=== PATIENT | male | born 1965 | race Caucasian/White ===

== ENCOUNTER 2020-09-27 09:15 | Emergency (ER) | payer OTHER, SELFPAY ==
--- NOTE | ~2020-09-27 | XR_ITS ---
EXAMINATION: XR chest 1V portable EXAM DATE: 09/27/2020 10:59 INDICATION: High blood pressure, headache. TECHNIQUE: Portable AP frontal chest x-ray was obtained. Comparison is made to prior examination from 08/29/2019. Correlation was made with 08/29/2019. FINDINGS: There is no focal acute air space disease. Mild hyperinflation. There are no pleural effus ions. The cardiomediastinal silhouette is within normal limits. There is no pneumothorax suspected. The bones and soft tissues are unremarkable. IMPRESSION: No acute cardiopulmonary findings. Reviewed, dictated and finalized at location A. LFA DEHYDRATOR OPERATOR
[2020-09-27 09:52] VITALS: BP 215/104; PULSE 106; RESP 106; TEMP 36.8; O2SAT 98
--- NOTE | 2020-09-27 10:05 | ECG_ITS ---
Measurements Intervals [place] Rate: 91 P: 68 SC: 188 QRS: 63 QRSD: 81 T: 60 QT: 351 QTc: 432 Interpretive Statements SINUS RHYTHM VOLTAGE CRITERIA FOR LVH BASELINE ARTIFACT- V1 BORDERLINE ECG Electronically Signed On 09-27-2020 14:45:04 ELECTRIC ORGAN INSPECTOR AND REPAIRER by Kal Roberts D.O.
[2020-09-27 10:14] LABS: Basophils Percent Auto 0.6 % (0.2-1.2); Eosinophils Percent Auto 0.3 % (0-4.4); Hematocrit 40.6 % (42.0-52.0); Hemoglobin 14.1 g/dL (14.0-18.0); Immature Granulocyte Absolute 0.03 K/mm3 (0.00-0.031); Immature Granulocyte Percent A 0.5 % (0-0.5); Lymphocytes Absolute Auto 1.85 K/mm3 (0.9-3.2); Lymphocytes Percent Auto 28.3 % (18.3-44.2); Mean Corpuscular HGB Conc 34.7 g/dl (32-36); Mean Corpuscular Hemoglobin 35.8 pg (26-34); Mean Platelet Volume 8.6 fl (7.4-10.4); Monocytes Absolute Auto 0.5 K/mm3 (0.1-0.6); Neutrophils Absolute Auto 4.1 K/mm3 (1.3-6.7); Neutrophils Percent Auto 63.3 % (45.5-73.1); Platelet Count Result 156 k/mm3 (150-375); Red Blood Count 3.94 M/mm3 (4.6-6.20); Red Cell Distribution Width 14.3 % (11.5-14.5); White Blood Count 6.5 K/mm3 (4.5-10.0)
[2020-09-27 10:42] LABS: Anion Gap 8 mmol/L (8-16); Blood Urea Nitrogen 13 mg/dL (9-20); Calcium 9.1 mg/dL (8.4-10.2); Carbon Dioxide 34 mmol/L (22-30); Chloride 101 mmol/L (98-107); Estimated CRCL calculation 101 ml/min; Estimated Glomerular Filt Rate > 60; Glucose 107 mg/dL (75-110); Potassium 3.3 mmol/L (3.4-5.0); Sodium 143 mmol/L (137-145)
--- NOTE | 2020-09-27 10:42 | ED.GENADULT ---
HPI - General Adult General Chief complaint: Recheck/Abnormal Lab/Rx Stated complaint: high bp. sent by pcp Time Seen by Provider: 09/27/20 09:40 Source: patient Mode of arrival: ambulatory Limitations: no limitations History of Present Illness HPI narrative: Patient is a 54-year-old male who presents with high blood pressure from primary care doctor's office where he went for routine follow-up was found to have elevated blood pressure is currently asymptomatic does note that he has been under increasing stress has been out of his anxiety medicine for a week patient denies any illness complaints otherwise and is resting in the room in no distress upon arrival patient with history of tobacco abuse denies history of hypertension Related Data Allergies Allergy/AdvReac Type Severity Reaction Status Date / Time No Known Drug Allergies Allergy Unknown Unknown Verified 03/30/20 09:31 Review of Systems Review of Systems: All systems reviewed & are unremarkable except as noted in HPI and below PMFSH Past Medical History Medical History (Updated 09/27/20 @ 12:56 by Mateo Solano PA-C) Anxiety Social History Social History (Updated 09/27/20 @ 10:43 by Mateo Solano PA-C) Smoking status: Current every day smoker Gender identity (if verbalized by the patient): Female Sexual Orientation (if Verbalized by the Patient): Straight or Heterosexual Exam Narrative: Exam Narrative: GENERAL: Well-appearing, well-nourished, and in no acute distress. HEAD: Normocephalic, atraumatic. EYES: PERRLA and EOMI. ENT: Nares clear, no rhinorrhea or epistaxis. Mucous membranes moist. CHEST: Clear to auscultation. No respiratory distress. No wheezes rales or rhonchi HEART: Regular rate and rhythm. No murmur heard. Normal peripheral pulses. EXTREMITIES: Normal range of motion. No edema. SKIN: Warm, dry, no rash. NEURO: No focal deficits. Alert and oriented x3. Cranial nerves II through XII grossly intact PSYCH: Normal mood and affect. Course Course Emergency Course: Patient's blood pressure 164/99. Patient given blood pressure medications with improvement no high risk changes in the blood work felt appropriate for outpatient reevaluation will be started on blood pressure medication and follow in clinic Reevaluation(s) Reevaluation #1: Discussed with primary care who wants the patient prescribed lisinopril 10 mg daily and to follow in clinic in 1 week Date: 09/27/20 Time: 12:54 Vital Signs Vital signs: Vital Signs Temperature 98.2 F 09/27/20 09:52 Pulse Rate 106 H 09/27/20 09:52 Respiratory Rate 106 H 09/27/20 09:52 Blood Pressure 215/104 H 09/27/20 09:52 Pulse Oximetry 98 09/27/20 09:52 Temperature 98.2 F 09/27/20 09:52 Pulse Rate 103 H 09/27/20 10:58 Respiratory Rate 14 09/27/20 10:58 Blood Pressure 190/115 H 09/27/20 10:58 Pulse Oximetry 98 09/27/20 10:58 Medical Decision Making MDM Narrative Medical decision making narrative: Patient presented with asymptomatic blood pressure with no history of hypertension will be discharged with follow-up with primary care. Patient resting comfortably denying any symptoms or complaints agrees to follow-up as directed provided with reasons to return Vital Signs Vital Signs: Vital Signs Temperature 98.2 F 09/27/20 09:52 Pulse Rate 106 H 09/27/20 09:52 Respiratory Rate 106 H 09/27/20 09:52 Blood Pressure 215/104 H 09/27/20 09:52 Pulse Oximetry 98 09/27/20 09:52 Temperature 98.2 F 09/27/20 09:52 Pulse Rate 103 H 09/27/20 10:58 Respiratory Rate 14 09/27/20 10:58 Blood Pressure 190/115 H 09/27/20 10:58 Pulse Oximetry 98 09/27/20 10:58 Lab Data Result diagrams: 09/27/20 10:07 09/27/20 10:07 Labs: Lab Results 09/27/20 09/27/20 Range/Units 10:07 10:07 WBC 6.5 (4.5-10.0) K/mm3 RBC 3.94 L (4.6-6.20) M/mm3 Hgb 14.1 (14.0-18.0) g/dL Hct 40.6 L (42.0-52.0) % MCV 103.0 H
[2020-09-27 10:58] VITALS: BP 190/115; PULSE 103; RESP 14; O2SAT 98
[2020-09-27] MEDS: hydrALAZINE HCL 20 MG/ML VIAL 10 MG IV PUSH (10:59)
[2020-09-27] MEDS: LORazepam INJ (*CRX) 2 MG/ML VIAL 1 MG IV PUSH (10:59)
[2020-09-27 13:17] VITALS: BP 166/70; PULSE 70; RESP 18; O2SAT 99
== END 2020-09-27 13:18 | disposition home or self-care (01) ==
PROVIDERS: Emergency Medicine Emergency Medical Services; Emergency Provider Emergency Medicine; PCP Family Medicine
DX: I10 Essential (primary) hypertension (principal); F41.9 Anxiety disorder, unspecified; R94.31 Abnormal electrocardiogram [ECG] [EKG]
CPT/HCPCS: 36415; 71045; 80048; 85025; 93005; 96374; 96375; 99284; J0360; J2060

== ENCOUNTER 2020-10-31 17:28 | Outpatient (CLI) | payer OTHER, SELFPAY | END 2020-10-31 17:29 | disposition home or self-care (01) | LOC: CHSLAB 17:31 | PROVIDERS: PCP Family Medicine; Visit Provider Nurse Practitioner | DX: R97.20 Elevated prostate specific antigen [PSA] (principal) | CPT/HCPCS: 36415; 84153 ==

== ENCOUNTER 2020-11-05 17:04 | Emergency (ER) | payer OTHER, SELFPAY ==
[2020-11-05] VITALS (8 sets, daily range): BP systolic 130–215; BP diastolic 95–122; PULSE 68–89; RESP 20; TEMP 36.7; O2SAT 95–98
--- NOTE | ~2020-11-05 | CT_ITS ---
EXAMINATION: CT BRAIN W/O DATE: 11/05/2020 17:55 INDICATION: Hypertension. Headache. TECHNIQUE: Computed tomography (CT) of the head was performed without intravenous contrast. The dose- length product was 605.33 mGy-cm. The mA was adjusted according to patient size. Iterative reconstruc tion technique was employed. COMPARISON: CT dated 03/04/2016 FINDINGS: Mild generalized atrophy. Normal sanchez-white differentiation. No acute intracranial hemorrha ge, infarction, mass or mass effect. No ventriculomegaly or midline shift. Midline sagittal images demonstrate a normal corpus callosum, c raniovertebral junction and sella turcica. Basilar cisterns are patent. Paranasal sinuses and mastoids are pneumatized. No depressed skull fractures. IMPRESSION: 1. No acute intracranial abnormality. Reviewed, dictated and finalized at location A. LINE ENGINE INSPECTOR
--- NOTE | ~2020-11-05 | XR_ITS ---
XR chest 2V 11/05/2020 17:56 Indication: Hypertension. Dyspnea. Procedure: PA and lateral views of the chest Comparison: 10/16/2016 Findings: Heart size normal. There is lucency in the retrosternal space with possible pleural reflect ion. No focal pneumonia, edema or effusion. Small nodular density left lower thorax, likely calcified granuloma. There are surgical changes overlying the upper thorax. The lungs are hyperinflated which is consistent with, but not diagnostic of chronic obstructive pulmonary disease. Impression: 1: Retrosternal lucency with possible pleural reflection. This has a similar appearance on chest x-ra y dated 10/16/2016. This may relate to emphysematous changes or chronic loculated pneumothorax. Reviewed, dictated and finalized at location A. TRONICS DEPARTMENT MANAGER Impression: 1: Retrosternal lucency with possible pleural reflection. This has a similar ap pearance on chest x-ray dated 10/16/2016. This may relate to emphysematous santana ges or chronic loculated pneumothorax.
--- NOTE | 2020-11-05 17:21 | ED.GENADULT ---
HPI - General Adult General Chief complaint: Unspecified Stated complaint: high blood pressure Source: patient Mode of arrival: ambulatory Limitations: no limitations History of Present Illness HPI narrative: 55-year-old man with a history of hypertension, peptic ulcer disease, and depression comes in today complaining of elevated blood pressure and a mild headache on the top of his head. Headache comes and goes. States he saw his primary doctor this morning who instructed him to come to the hospital for further evaluation. He went to work and after work his blood pressure did not improve so he came here. He states he took 50 mg of metoprolol this evening and 20 mg of lisinopril this morning. He denies shortness of breath, chest pain, abdominal pain, hematuria, nausea, vomiting and leg swelling. Onset (ago): day(s) Location: head Radiation: non-radiation Severity: mild Quality: dull Pain Consistency: constant Relieving factors: none Exacerbating factors: none Associated symptoms: denies other symptoms Related Data Home Medications Medication Instructions Recorded Confirmed buspirone 10 mg PO DAILY 11/05/20 11/05/20 escitalopram oxalate [Lexapro] 20 mg PO DAILY 11/05/20 11/05/20 lisinopril 20 mg PO DAILY 11/05/20 11/05/20 metoprolol tartrate 50 mg PO BID 11/05/20 11/05/20 Allergies Allergy/AdvReac Type Severity Reaction Status Date / Time No Known Drug Allergies Allergy Unknown Unknown Verified 11/05/20 17:21 Review of Systems Constitutional: Constitutional: Denies chills, Denies fever(s) and Denies weakness Eyes: Eyes: Denies change in vision and Denies photophobia ENT: Denies dysphagia and Denies vertigo Cardiovascular: Cardiovascular: Denies chest pain and Denies radiating jaw, neck or arm pain Respiratory: Respiratory: Denies cough, Denies dyspnea and Denies wheezing Gastrointestinal: Gastrointestinal: Denies abdominal pain, Denies nausea and Denies vomiting Genitourinary: Genitourinary: Denies hematuria Musculoskeletal: Musculoskeletal: Denies arthralgias and Denies joint swelling Integumentary/Breasts: Skin/Breast: Denies pruritus, Denies erythema and Denies rash Neurologic: Denies dizziness and Denies syncope Allergic/Immunologic: Allergic/Immunologic: Denies lip swelling and Denies tongue swelling [facility] Past Medical History Medical History (Updated 11/05/20 @ 21:44 by Maverick Ogden MD) Anxiety Back pain Gout Peptic ulcer disease Surgical History Surgical History (Updated 11/05/20 @ 17:46 by Maverick Ogden MD) H/O colectomy H/O esophagectomy with colon segment anastomosis at 4 years-old after swallowing caustic substance. History of gastrostomy tube placement Social History Social History (Updated 11/05/20 @ 17:46 by Maverick Ogden MD) Smoking status: Current every day smoker Alcohol intake: current Alcohol use details: daily Living arrangements: with family Gender identity (if verbalized by the patient): Male Exam Const: General: healthy appearing, no acute distress and alert Orientation/consciousness: patient oriented x3 Limitations: no limitations HENMT: Head: normal to inspection Ears: external ears normal, TM's normal bilaterally and EAC's normal General nose exam: Normal nares present Face and sinus: normal facial exam Mouth: Yes moist mucous membranes Throat: posterior oropharynx normal Eyes: Conjunctivae: conjunctivae normal EOM: EOMs intact bilaterally Resp: Effort & Inspection: normal respiratory effort and not labored Auscultation: clear to auscultation bilaterally, no rales, no rhonchi and no wheezes Cardio: Rate: regular rate Rhythm: regular rhythm Heart sounds: no murmurs GI: GI Palp: Yes Soft to palpation and No Tenderness to palpation present (GI) Skin: General skin exam: normal color, no jaundice and no pallor Rashes: no rashes Neuro: General: patient oriented x3, moves all extremities, no focal motor deficits
--- NOTE | 2020-11-05 17:29 | ECG_ITS ---
Measurements Intervals [place] Rate: 77 P: 77 [place]: 158 QRS: 71 QRSD: 88 T: 69 QT: 350 QTc: 398 Interpretive Statements SINUS RHYTHM POSSIBLE LEFT ATRIAL ENLARGEMENT POSSIBLE LEFT VENTRICULAR HYPERTROPHY DELAYED PRECORDIAL R/S TRANSITION BORDERLINE ECG Electronically Signed On 11-05-2020 18:29:12 APPRAISER OIL AND WATER by Kal Roberts D.O.
[2020-11-05 18:47] LABS: Anion Gap 12 mmol/L (8-16); Blood Urea Nitrogen 12 mg/dL (7-18); Calcium 9.4 mg/dL (8.5-10.1); Carbon Dioxide 25 mmol/L (21-32); Chloride 101 mmol/L (98-108); Estimated CRCL calculation 76 ml/min; Estimated Glomerular Filt Rate > 60; Glucose 103 mg/dL (70-99); Osmolality Calculated 285 mOsm/kg (285-295); Potassium 3.3 mmol/L (3.5-5.1); Sodium 138 mmol/L (136-145); Troponin I 6.6 ng/L (0.00-60.4)
[2020-11-05 18:54] LABS: Ethanol < 3 mg/dL (0-6)
[2020-11-05 19:17] LABS: Add Urine Microscopic? NO; Appearance Urine Clear (Clear); Bilirubin Urine Negative (Negative); Blood Urine Negative (Negative); Color Urine Yellow (Yellow); Glucose Urine UA Negative (Negative); Ketones Urine Negative (Negative); Leukocyte Esterase Ur Negative LEU/UL (Negative); Nitrate Urine Negative (Negative); Protein Urine Negative (Negative); Specific Grav Ur 1.025 (1.010-1.020); Urobilinogen Urine 0.2 mg/dL (0.2-1.0); pH Urine 5.5 (5.0-8.0)
[2020-11-05 19:20] LABS: Basophils Absolute Auto 0.04 K/mm3 (0.00-0.10); Basophils Percent Auto 0.4 % (0.0-1.0); Eosinophils Absolute Auto 0.06 K/mm3 (0.02-0.50); Eosinophils Percent Auto 0.6 % (1.0-6.0); Hematocrit 42.1 % (40.0-54.0); Hemoglobin 14.2 g/dL (14.0-18.0); Immature Granulocyte Absolute 0.06 K/mm3 (0.00-0.00); Immature Granulocyte Percent A 0.6 % (0.0-0.0); Lymphocytes Absolute Auto 2.71 K/mm3 (1.10-4.50); Lymphocytes Percent Auto 27.9 % (18.0-42.0); Mean Corpuscular HGB Conc 33.7 g/dL (32.0-36.0); Mean Corpuscular Hemoglobin 34.6 pg (27.0-31.0); Mean Corpuscular Volume 102.7 fL (78.0-102.0); Mean Platelet Volume 9.9 fl (8.7-11.0); Monocytes Absolute Auto 0.79 K/mm3 (0.10-0.90); Monocytes Percent Auto 8.1 % (2.0-11.0); Neutrophils Absolute Auto 6.1 K/mm3 (1.7-7.2); Neutrophils Percent Auto 62.4 % (50.0-70.0); Platelet Count Result 214 K/mm3 (150-420); Red Cell Distribution Width 13.9 % (11.6-14.4); White Blood Count 9.7 K/mm3 (4.8-10.8)
[2020-11-05] MEDS: LORazepam (*CRX) 1 MG TABLET PO (19:27)
[2020-11-05 19:50] LABS: Amphetamine Screen Urine Negative (Negative); Barbiturate Screen Urine Negative (Negative); Benzodiazepines Screen Urine Negative (Negative); Cannabinoid Screen Urine Negative (Negative); Cocaine Screen Urine Negative (Negative); Methadone Screen Urine Negative (Negative); Opiate Screen Urine Negative (Negative); Phencyclidine Screen Urine Negative (Negative)
[2020-11-05 19:57] LABS: Free T4 Free Thyroxine Reflex 0.76 ng/dL (0.76-1.46)
[2020-11-05] MEDS: cloNIDine HCL 0.1 MG TABLET PO (20:24)
[2020-11-05] MEDS: amLODIPine BESYLATE 5 MG TABLET PO (21:51)
== END 2020-11-05 22:27 | disposition home or self-care (01) ==
PROVIDERS: Emergency Provider Emergency Medicine; PCP Family Medicine
DX: I10 Essential (primary) hypertension (principal)
CPT/HCPCS: 36415; 70450; 71046; 80048; 80307; 81003; 84439; 84443; 84484; 85025; 93005; 99284; A9270

== ENCOUNTER 2021-01-05 13:38 | Outpatient (CLI) | payer OTHER, SELFPAY ==
--- NOTE | ~2021-01-05 | XR_ITS ---
EXAMINATION: XR sacrum coccyx min 2V EXAM DATE: 01/05/2021 14:34 INDICATION: No known recent injury provided at this time. Pain of the sacrum. TECHNIQUE: Frontal, inlet, lateral projections of the sacrum and coccyx. There is no prior study fo r comparison. FINDINGS: Sacrum, sacroiliac joints, sacral arcuate lines are intact. Mild bilateral sacroiliac join t primary osteoarthritis. There are no acute fractures or dislocations identified. There is no subcu taneous gas. The soft tissue is unremarkable. There are no radiopaque foreign bodies. IMPRESSION: Mild sacroiliac joint osteoarthritis. Reviewed, dictated and finalized at location A. K MAKER
--- NOTE | ~2021-01-05 | XR_ITS ---
EXAMINATION: XR thoracic spine 3V EXAM DATE: 01/05/2021 14:34 INDICATION: Back pain. States head injury 13 years ago, fall. No recent injury history provided. TECHNIQUE: Frontal and lateral projections of the thoracic spine as well as lateral swimmers projecti on of the upper thoracic spine for interpretation. There is no prior study for comparison. FINDINGS: There is mild mid and lower thoracic disc disease. No endplate erosive change. Vertebral b buffy heights are maintained. Paraspinal soft tissue is unremarkable. IMPRESSION: Mild mid and lower thoracic disc disease. Reviewed, dictated and finalized at location A. MAKER APPRENTICE
--- NOTE | ~2021-01-05 | XR_ITS ---
EXAMINATION: XR cervical spine 4-5V EXAM DATE: 01/05/2021 14:34 INDICATION: Neck pain. No recent injury. TECHNIQUE: Cervical spine frontal, lateral, lateral swimmers, and open-mouth odontoid projections. C omparison is made to prior examination from 12/10/2009. FINDINGS: There is been interval development of moderate disc disease at C5-6 and mild to moderate u ncovertebral joint arthropathy. The vertebral body and disc heights are otherwise well maintained. Mi ld cervical facet arthropathy. The vertebral bodies are aligned in the AP dimension. The odontoid pro cess is intact. The lateral masses of C1 line up with C2. Prevertebral soft tissue and pre-dens spac e are within normal limits. Probable thyroidectomy clips. IMPRESSION: C5-6 moderate disc disease. Reviewed, dictated and finalized at location A. NSE EXAMINER IMPRESSION: C5-6 moderate disc disease.
--- NOTE | ~2021-01-05 | XR_ITS ---
EXAMINATION: XR lumbar spine 2-3V EXAM DATE: 01/05/2021 14:34 INDICATION: Neck and back pain. States had fall 13 years ago. TECHNIQUE: Lumber spine frontal, lateral, lateral L5-S1 projections for interpretation. Comparison is made to prior examination from 12/10/2009. FINDINGS: Mild disc disease at L3-4 has developed, minimal disc disease at the other lumbar levels. There is mild lumbar facet arthropathy. No spondylolysis. The vertebral bodies are aligned in the AP dimension. Paraspinal soft tissue is unremarkable. Right upper quadrant calcific density, could be carlos ng granuloma; renal contour is below this. Calcifications in the pelvis are believed to be phlebolith s. Mild aortic arterial sclerosis. IMPRESSION: Mild lumbar spondylosis. Reviewed, dictated and finalized at location A. TERINTELLIGENCE AGENT IMPRESSION: Mild lumbar spondylosis.
== END 2021-01-05 13:39 | disposition home or self-care (01) ==
LOC: CHSIMG 13:41
PROVIDERS: PCP Nurse Practitioner; Visit Provider Nurse Practitioner
DX: M54.2 Cervicalgia (principal); M54.9 Dorsalgia, unspecified
CPT/HCPCS: 72050; 72072; 72100; 72220

== ENCOUNTER 2021-03-09 09:33 | Outpatient (CLI) | payer OTHER, SELFPAY ==
[2021-03-09 09:49] LABS: Basophils Absolute Auto 0.06 K/mm3 (0.00-0.10); Basophils Percent Auto 0.6 % (0.0-1.0); Eosinophils Percent Auto 2.1 % (1.0-6.0); Hematocrit 36.9 % (40.0-54.0); Hemoglobin 12.5 g/dL (14.0-18.0); Immature Granulocyte Absolute 0.06 K/mm3 (0.00-0.00); Immature Granulocyte Percent A 0.6 % (0.0-0.0); Lymphocytes Absolute Auto 2.39 K/mm3 (1.10-4.50); Mean Corpuscular HGB Conc 33.9 g/dL (32.0-36.0); Mean Corpuscular Hemoglobin 35.9 pg (27.0-31.0); Mean Platelet Volume 8.7 fl (8.7-11.0); Monocytes Absolute Auto 0.69 K/mm3 (0.10-0.90); Monocytes Percent Auto 7.2 % (2.0-11.0); Neutrophils Absolute Auto 6.2 K/mm3 (1.7-7.2); Neutrophils Percent Auto 64.5 % (50.0-70.0); Platelet Count Result 182 K/mm3 (150-420); Red Blood Count 3.48 M/mm3 (4.70-6.10); Red Cell Distribution Width 13.7 % (11.6-14.4); White Blood Count 9.6 K/mm3 (4.8-10.8)
[2021-03-09 09:56] LABS: Creatinine Urine 215.65 mg/dL (40-278); Microalbumin Urine Random < 13.0 mg/L
[2021-03-09 11:01] LABS: Alanine Aminotransferase 35 U/L (16-63); Albumin Level 3.7 g/dL (3.4-5.0); Alkaline Phosphatase 68 U/L (46-116); Anion Gap 6 mmol/L (8-16); Aspartate Amino Transferase 27 U/L (15-37); Bilirubin,Total 0.4 mg/dL (0.00-1.00); Blood Urea Nitrogen 13 mg/dL (7-18); Calcium 9.1 mg/dL (8.5-10.1); Carbon Dioxide 30 mmol/L (21-32); Chloride 101 mmol/L (98-108); Cholesterol 164 mg/dL (0-200); Estimated Glomerular Filt Rate > 60; Glucose 100 mg/dL (70-99); HDL Direct 44 mg/dL (40-60); LDL Cholesterol Calculated 97 mg/dL (<130); Osmolality Calculated 284 mOsm/kg (285-295); Potassium 4.2 mmol/L (3.5-5.1); Sodium 137 mmol/L (136-145); Thyroid Stimulating Hormone 1.83 uIU/mL (0.36-3.74); Total Protein 6.7 g/dL (6.4-8.2); Triglycerides 115 mg/dL (0-150)
[2021-03-09 11:25] LABS: Prostate Specific Antigen 4.6 ng/mL (< OR = 4.0)
[2021-03-12 14:26] LABS: Total Triiodothyronine (T3) 152 ng/dL (76-181)
[2021-03-12 16:14] LABS: Vitamin D 25 Hydroxy 50 ng/mL (30-100)
== END 2021-03-09 09:34 | disposition home or self-care (01) ==
LOC: CHSLAB 09:35
PROVIDERS: PCP Family Medicine; Visit Provider Nurse Practitioner
DX: Z00.00 Encounter for general adult medical examination without abnormal findings (principal); I10 Essential (primary) hypertension; R97.20 Elevated prostate specific antigen [PSA]
CPT/HCPCS: 36415; 80053; 80061; 82043; 82306; 84153; 84439; 84443; 84480; 85025; G0103

== ENCOUNTER 2021-04-05 14:26 | Emergency (ER) | payer OTHER, SELFPAY ==
--- NOTE | ~2021-04-05 | XR_ITS ---
EXAMINATION: XR chest 1V portable EXAM DATE: 04/05/2021 15:50 INDICATION: Cough and wheezing. Shortness of breath. TECHNIQUE: Portable AP frontal chest x-ray was obtained. Comparison is made to prior examination from 11/05/2020. FINDINGS: The lungs are clear. There are no pleural effusions. The cardiomediastinal silhouette is within normal limits. There is no pneumothorax suspected. The bones and soft tissues are unremarkab le. IMPRESSION: No acute cardiopulmonary findings. Reviewed, dictated and finalized at location A.
[2021-04-05] MEDS: SODIUM CHLORIDE 0.9% IV 1,000 ML 999 ML (15:03)
[2021-04-05 15:10] VITALS: BP 84/64; PULSE 74; RESP 14; TEMP 36.6; O2SAT 97
--- NOTE | 2021-04-05 15:40 | ECG_ITS ---
Measurements Intervals [place] Rate: 61 P: 78 [place]: 198 QRS: 77 QRSD: 95 T: 73 QT: 350 QTc: 354 Interpretive Statements SINUS RHYTHM DELAYED PRECORDIAL R/S TRANSITION PEAKED T WAVES- CONSIDER HYPERKALEMIA OR ISCHEMIA BASELINE ARTIFACT- I, II, III, AVR, AVL,A VF, V2-V3 ABNORMAL ECG Electronically Signed On 04-05-2021 16:24:15 CDT by Kal Roberts D.O.
[2021-04-05] MEDS: IPRATROPIUM 0.5 MG/ALBUTEROL SULFATE 2.5 MG AMPUL.NEB 3 ML INHALATION (15:54)
[2021-04-05 15:55] VITALS: PULSE 66; RESP 18; O2SAT 100
[2021-04-05] MEDS: SODIUM CHLORIDE 0.9% IV 2,000 ML 999 ML IV CONT (15:56)
[2021-04-05 15:58] LABS: Basophils Absolute Auto 0.03 K/mm3 (0.00-0.10); Basophils Percent Auto 0.3 % (0.0-1.0); Eosinophils Absolute Auto 0.13 K/mm3 (0.02-0.50); Eosinophils Percent Auto 1.3 % (1.0-6.0); Hemoglobin 12.2 g/dL (14.0-18.0); Immature Granulocyte Absolute 0.06 K/mm3 (0.00-0.00); Immature Granulocyte Percent A 0.6 % (0.0-0.0); Lymphocytes Absolute Auto 2.21 K/mm3 (1.10-4.50); Lymphocytes Percent Auto 22.8 % (18.0-42.0); Mean Corpuscular HGB Conc 33.9 g/dL (32.0-36.0); Mean Corpuscular Hemoglobin 35.1 pg (27.0-31.0); Mean Corpuscular Volume 103.4 fL (78.0-102.0); Mean Platelet Volume 9.4 fl (8.7-11.0); Monocytes Absolute Auto 0.92 K/mm3 (0.10-0.90); Monocytes Percent Auto 9.5 % (2.0-11.0); Neutrophils Absolute Auto 6.3 K/mm3 (1.7-7.2); Neutrophils Percent Auto 65.5 % (50.0-70.0); Platelet Count Result 154 K/mm3 (150-420); Red Blood Count 3.48 M/mm3 (4.70-6.10); Red Cell Distribution Width 12.8 % (11.6-14.4); White Blood Count 9.7 K/mm3 (4.8-10.8)
[2021-04-05 16:00] VITALS: BP 100/62
[2021-04-05 16:01] VITALS: PULSE 60; RESP 18; O2SAT 100
[2021-04-05 16:15] LABS: Alanine Aminotransferase 32 U/L (16-63); Albumin Level 3.4 g/dL (3.4-5.0); Alkaline Phosphatase 57 U/L (46-116); Anion Gap 7 mmol/L (8-16); Aspartate Amino Transferase 14 U/L (15-37); Bilirubin,Total 0.3 mg/dL (0.00-1.00); Blood Urea Nitrogen 61 mg/dL (7-18); Carbon Dioxide 25 mmol/L (21-32); Chloride 101 mmol/L (98-108); Estimated Glomerular Filt Rate 19; Glucose 107 mg/dL (70-99); Lipase 251 U/L (73-393); Osmolality Calculated 293 mOsm/kg (285-295); Potassium 5.9 mmol/L (3.5-5.1); Sodium 133 mmol/L (136-145); Total Protein 6.3 g/dL (6.4-8.2)
[2021-04-05 16:20] LABS: Troponin I < 4.0 ng/L (0.00-60.4)
--- NOTE | 2021-04-05 16:33 | ED.WEAKNESS ---
HPI - Weakness General Chief complaint: Weakness Stated complaint: dizzy/ no appetite/Fatigue History of Present Illness HPI Narrative: pt came to the ed with complaints of weakness and dizzyness. 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 HE hasnt ate or drank very well ever since. He feels weak and ill. MD Complaint: generalized weakness Onset (ago): day(s) Duration: constant Location: generalized Relieving factors: none Exacerbating factors: none Associated symptoms: denies other symptoms and nausea/vomiting (mild nausea and dry heaves) Related Data Home Medications Medication Instructions Recorded Confirmed buspirone 10 mg PO TID 11/05/20 04/05/21 lisinopril 40 mg PO DAILY 11/05/20 04/05/21 metoprolol tartrate 50 mg PO BID 11/05/20 04/05/21 bupropion HCl 150 mg PO DAILY 04/05/21 04/05/21 ferrous sulfate 325 mg PO DAILY 04/05/21 04/05/21 hydrocodone-acetaminophen 1 tablet PO TID PRN 04/05/21 04/05/21 trazodone 100 mg PO HS 04/05/21 04/05/21 Allergies Allergy/AdvReac Type Severity Reaction Status Date / Time No Known Drug Allergies Allergy Unknown Unknown Verified 11/05/20 17:21 Review of Systems Constitutional: Constitutional: Denies chills, Reports fatigue, Denies fever(s) and Reports weakness Eyes: Eyes: Reports no additional eye complaints ENT: Reports system reviewed and no additional complaints, except as documented Cardiovascular: Cardiovascular: Reports no additional cardiovascular complaints Respiratory: Respiratory: Reports no additional respiratory complaints Gastrointestinal: Gastrointestinal: Reports abdominal pain, Denies bloating, Denies constipation, Denies heartburn, Denies diarrhea, Reports nausea and Denies vomiting Genitourinary: Genitourinary: Reports no additional male genitourinary complaints Musculoskeletal: Musculoskeletal: Reports no additional musculoskeletal complaints Integumentary/Breasts: Skin/Breast: Reports system reviewed and no additional complaints, except as docu Neurologic: Reports system reviewed and no additional complaints, except as documented and Reports dizziness Psychiatric: Psychiatric: Reports no additional psychiatric complaints Endocrine: Endocrine: Reports no additional endocrine complaints Hematologic/Lymphatic: Hematologic/Lymphatic: Reports no additional hematologic/lymphatic complaints Allergic/Immunologic: Allergic/Immunologic: Reports no additional allergic/immunologic complaints PMFSH Past Medical History Medical History Anxiety Back pain Gout Peptic ulcer disease Surgical History Surgical History H/O colectomy H/O esophagectomy with colon segment anastomosis at 4 years-old after swallowing caustic substance. History of gastrostomy tube placement Social History Social History Smoking status: Current every day smoker Alcohol intake: current Gender identity (if verbalized by the patient): Male Exam Const: General: no acute distress and alert Orientation/consciousness: patient oriented x3 HENMT: Head: normal to inspection Eyes: Conjunctivae: conjunctivae normal Pupils: Equal, round and reactive pupils present Neck: Neck: normal visual inspection Resp: Effort & Inspection: normal respiratory effort Auscultation: clear to auscultation bilaterally and wheezes Cardio: Rate: tachycardic Rhythm: regular rhythm GI: GI Palp: Yes Soft to palpation, No Tenderness to palpation present (GI), No Guarding due to palpation present (GI) and No Rigid due to palpation Back/Spine/Pelvis: Back: no CVA tenderness Skin: General skin exam: normal color Rashes: no rashes Neuro: General: patient oriented x3 and moves all extremities Speech: normal speech Extrem: General: normal to inspection Psych: Appearance: grossly normal
[2021-04-05] MEDS: SODIUM POLYSTYRENE SULFONONATE 15 GM/60 ML BTL PO (16:42)
[2021-04-05 16:48] LABS: Add Urine Microscopic? NO; Appearance Urine Clear (Clear); Bilirubin Urine Negative (Negative); Blood Urine Negative (Negative); Color Urine Yellow (Yellow); Glucose Urine UA Negative (Negative); Ketones Urine Negative (Negative); Leukocyte Esterase Ur Negative LEU/UL (Negative); Nitrate Urine Negative (Negative); Protein Urine Negative (Negative); Specific Grav Ur 1.015 (1.010-1.020); Urobilinogen Urine 0.2 mg/dL (0.2-1.0)
[2021-04-05 17:25] VITALS: BP 104/72
[2021-04-05 17:37] LABS: Anion Gap 9 mmol/L (8-16); Blood Urea Nitrogen 58 mg/dL (7-18); Calcium 8.1 mg/dL (8.5-10.1); Carbon Dioxide 21 mmol/L (21-32); Chloride 104 mmol/L (98-108); Estimated Glomerular Filt Rate 23; Glucose 110 mg/dL (70-99); Osmolality Calculated 295 mOsm/kg (285-295); Potassium 5.6 mmol/L (3.5-5.1); Sodium 134 mmol/L (136-145)
[2021-04-05 18:07] LABS: Creatine Kinase 64 U/L (39-308)
[2021-04-05 18:12] VITALS: BP 104/72
== END 2021-04-05 18:20 | disposition left against medical advice (07) ==
PROVIDERS: Emergency Provider Emergency Medicine; PCP Family Medicine
DX: E86.0 Dehydration (principal); N17.9 Acute kidney failure, unspecified
CPT/HCPCS: 36415; 71045; 80048; 80053; 81003; 82550; 83690; 84484; 85025; 93005; 94640; 96360; 96361; 99283; 99284; A9270; J7030

== ENCOUNTER 2021-04-08 12:10 | Outpatient (CLI) | payer OTHER, SELFPAY ==
[2021-04-08 12:43] LABS: Anion Gap 5 mmol/L (8-16); Blood Urea Nitrogen 20 mg/dL (9-20); Calcium 9.2 mg/dL (8.4-10.2); Carbon Dioxide 24 mmol/L (22-30); Chloride 106 mmol/L (98-107); Estimated Glomerular Filt Rate > 60; Glucose 181 mg/dL (75-110); Potassium 4.3 mmol/L (3.4-5.0); Sodium 135 mmol/L (137-145)
== END 2021-04-08 12:11 | disposition home or self-care (01) ==
LOC: ANHLAB 12:13
PROVIDERS: PCP Family Medicine; Visit Provider Family Medicine
DX: E87.5 Hyperkalemia (principal); N17.9 Acute kidney failure, unspecified
CPT/HCPCS: 36415; 80048

== ENCOUNTER 2022-01-17 12:47 | Outpatient (CLI) | payer OTHER, SELFPAY ==
--- NOTE | ~2022-01-17 | XR_ITS ---
XR ankle RT min 3V DATE: 01/17/2022 13:21 INDICATION: Right ankle and foot pain TECHNIQUE: 4 views COMPARISON: None FINDINGS: No fracture or dislocation of the ankle or disruption of the ankle mortise. IMPRESSION: Negative Reviewed, dictated and finalized at location A. SPRING FORMER IMPRESSION: Negative
--- NOTE | ~2022-01-17 | XR_ITS ---
XR foot RT min 3V DATE: 01/17/2022 13:22 INDICATION: Right foot pain and swelling TECHNIQUE: COMPARISON: None FINDINGS: There is mild osteoarthritis at the first metatarsophalangeal joint. No fracture or disloc ation, periosteal reaction or bone destruction. Slight calcaneal enthesopathy. IMPRESSION: Mild osteoarthritis at first metatarsophalangeal joint Slight plantar calcaneal enthesopathy Reviewed, dictated and finalized at location A. ICATION CONSULTANT
== END 2022-01-17 12:48 | disposition home or self-care (01) ==
LOC: CHSIMG 12:49
PROVIDERS: PCP Family Medicine; Visit Provider Family Medicine
DX: M79.671 Pain in right foot (principal); M25.571 Pain in right ankle and joints of right foot
CPT/HCPCS: 73610; 73630

== ENCOUNTER 2022-04-09 13:00 | Emergency (ER) | payer OTHER, SELFPAY ==
--- NOTE | ~2022-04-09 | XR_ITS ---
EXAMINATION: XR chest 1V portable DATE: 04/09/2022 13:30 INDICATION: Dizziness. TECHNIQUE: A single frontal view of the chest was obtained on 2 radiographs. COMPARISON: Chest single view 04/05/2021, CT abdomen and pelvis 08/29/2019 FINDINGS: There are changes of colonic interposition. There is mild atelectasis in lingula. No pleura l effusion or pneumothorax. The heart size is normal. IMPRESSION: 1. Mild atelectasis in lingula. Reviewed, dictated and finalized at location A.
--- NOTE | ~2022-04-09 | CT_ITS ---
EXAMINATION: CT BRAIN W/O DATE: 04/09/2022 13:29 INDICATION: Dizziness and nausea TECHNIQUE: Computed tomography (CT) of the head was performed without intravenous contrast. The dose- length product was 605.33 mGy-cm. Automated exposure control and iterative reconstruction technique w ere employed. COMPARISON: CT dated 11/05/2020 FINDINGS: Normal brain parenchymal volume for age. Normal sanchez-white differentiation. No acute intrac ranial hemorrhage, infarction, mass or mass effect. No ventriculomegaly or midline shift. Midline sagittal images demonstrate a normal corpus callosum, c raniovertebral junction and sella turcica. Basilar cisterns are patent. Paranasal sinuses and mastoids are pneumatized. No depressed skull fractures. IMPRESSION: 1. No acute intracranial abnormality. Reviewed, dictated and finalized at location A.
[2022-04-09 13:00] VITALS: BP 108/78; PULSE 106; RESP 20; TEMP 36.6; O2SAT 97
--- NOTE | 2022-04-09 13:13 | ECG_ITS ---
Measurements Intervals [place] Rate: 102 P: 85 [place]: 157 QRS: 96 QRSD: 87 T: 69 QT: 276 QTc: 359 Interpretive Statements SINUS TACHYCARDIA ATRIAL PREMATURE COMPLEXES RIGHT AXIS DEVIATION DELAYED PRECORDIAL R/S TRANSITION BORDERLINE ST-T WAVE ABNORMALITY- ANTEROLAT/HIGH LAT LEADS BASELINE ARTIFACT- I, II, III, AVR, AVL, AVF, V1-V3 BORDERLINE ECG Electronically Signed On 04-09-2022 13:50:53 CDT by Kal Roberts D.O.
[2022-04-09] MEDS: SODIUM CHLORIDE 0.9% IV 1,000 ML 999 ML IV CONT (13:37)
[2022-04-09 13:43] LABS: Basophils Absolute Auto 0.04 K/mm3 (0.00-0.10); Basophils Percent Auto 0.5 % (0.0-1.0); Eosinophils Absolute Auto 0.03 K/mm3 (0.02-0.50); Eosinophils Percent Auto 0.4 % (1.0-6.0); Hematocrit 32.3 % (40.0-54.0); Hemoglobin 11.7 g/dL (14.0-18.0); Immature Granulocyte Absolute 0.05 K/mm3 (0.00-0.00); Immature Granulocyte Percent A 0.6 % (0.0-0.0); Lymphocytes Percent Auto 22.1 % (18.0-42.0); Mean Corpuscular HGB Conc 36.2 g/dL (32.0-36.0); Mean Corpuscular Hemoglobin 39.5 pg (27.0-31.0); Mean Corpuscular Volume 109.1 fL (78.0-102.0); Mean Platelet Volume 8.6 fl (8.7-11.0); Monocytes Absolute Auto 0.73 K/mm3 (0.10-0.90); Neutrophils Absolute Auto 5.5 K/mm3 (1.7-7.2); Neutrophils Percent Auto 67.4 % (50.0-70.0); Platelet Count Result 284 K/mm3 (150-420); Red Blood Count 2.96 M/mm3 (4.70-6.10); Red Cell Distribution Width 14.6 % (11.6-14.4); White Blood Count 8.1 K/mm3 (4.8-10.8)
[2022-04-09 13:47] VITALS: PULSE 95
[2022-04-09 14:05] LABS: Alanine Aminotransferase 24 U/L (16-63); Alkaline Phosphatase 99 U/L (46-116); Anion Gap 8 mmol/L (8-16); Aspartate Amino Transferase 56 U/L (15-37); Bilirubin,Total 0.5 mg/dL (0.00-1.00); Blood Urea Nitrogen 19 mg/dL (7-18); Calcium 8.3 mg/dL (8.5-10.1); Carbon Dioxide 41 mmol/L (21-32); Chloride 89 mmol/L (98-108); Estimated CRCL calculation 40 ml/min; Estimated Glomerular Filt Rate 45; Glucose 109 mg/dL (70-99); Osmolality Calculated 289 mOsm/kg (285-295); Sodium 138 mmol/L (136-145); Total Protein 6.2 g/dL (6.4-8.2); Troponin I 28.4 ng/L (0.00-60.4)
[2022-04-09 14:07] LABS: Ethanol < 3 mg/dL (0-6); Potassium 1.5 mmol/L (3.5-5.1)
[2022-04-09 14:08] LABS: Lactic Acid Reflex 2.8 mmol/L (0.4-2.0)
[2022-04-09] MEDS: ONDANSETRON INJ 4 MG/2 ML VIAL IV PUSH (14:10)
[2022-04-09] MEDS: SODIUM CHLORIDE 0.9% IV 1,000 ML 150 ML IV CONT (14:10)
[2022-04-09] MEDS: POTASSIUM CHLORIDE 20 MEQ TABLET 60 MEQ PO (14:35)
[2022-04-09] MEDS: KCL 20 MEQ/SW 100 ML 100 ML 50 MEQ IVPB (14:36)
[2022-04-09 14:40] VITALS: BP 134/94; PULSE 94; RESP 18; O2SAT 98
[2022-04-09 14:47] LABS: Add Urine Microscopic? NO; Appearance Urine Clear (Clear); Bilirubin Urine Negative (Negative); Blood Urine Negative (Negative); Color Urine Light Yellow (Yellow); Glucose Urine UA Negative (Negative); Ketones Urine Negative (Negative); Leukocyte Esterase Ur Negative (Negative); Nitrate Urine Negative (Negative); Protein Urine Negative (Negative); Specific Grav Ur 1.015 (1.010-1.020); Urobilinogen Urine 0.2 mg/dL (0.2-1.0); pH Urine 5.5 (5.0-8.0)
--- NOTE | 2022-04-09 14:57 | ED.WEAKNESS ---
HPI - Weakness General Chief complaint: Weakness Stated complaint: leg pain & weakness, diarrhea, R facial weakness Time Seen by Provider: 04/09/22 13:04 Source: patient and RN notes reviewed Mode of arrival: ambulatory Limitations: no limitations History of Present Illness Complaint: generalized weakness Onset (ago): day(s) (1) Duration: constant and progressively worsening Location: generalized Migration: none Severity: moderate Relieving factors: none Exacerbating factors: none Associated symptoms: denies other symptoms and nausea/vomiting Related Data Home Medications Medication Instructions Recorded Confirmed lisinopril 20 mg tablet 40 mg PO DAILY 11/05/20 04/09/22 metoprolol tartrate 50 mg tablet 50 mg PO BID 11/05/20 04/09/22 ferrous sulfate 325 mg (65 mg 325 mg PO DAILY 04/05/21 04/09/22 iron) tablet hydrocodone 5 mg-acetaminophen 325 1 tablet PO TID PRN Pain 04/05/21 04/09/22 mg tablet trazodone 100 mg tablet 100 mg PO HS 04/05/21 04/09/22 Allergies Allergy/AdvReac Type Severity Reaction Status Date / Time No Known Drug Allergies Allergy Unknown Unknown Verified 11/05/20 17:21 Review of Systems Review of Systems: All systems reviewed & are unremarkable except as noted in HPI and below PMFSH Past Medical History Medical History Anxiety Back pain Dehydration Gout Hypokalemia Peptic ulcer disease Surgical History Surgical History H/O colectomy H/O esophagectomy with colon segment anastomosis at 4 years-old after swallowing caustic substance. History of gastrostomy tube placement Social History Social History Smoking status: Current every day smoker Alcohol intake: current Alcohol use details: daily Gender identity (if verbalized by the patient): Male Sexual Orientation (if Verbalized by the Patient): Straight or Heterosexual Exam Const: General: no acute distress Nutritional Appearance: thin Orientation/consciousness: patient oriented x3 Limitations: no limitations HENMT: Head: normal to inspection Ears: external ears normal, TM's normal bilaterally and EAC's normal General nose exam: Normal external nose present and Normal nares present Face and sinus: normal facial exam and sinuses nontender Mouth: Yes Normal oral and palatal mucosa present and Yes moist mucous membranes Throat: posterior oropharynx normal Eyes: Conjunctivae: conjunctivae normal Pupils: Equal, round and reactive pupils present EOM: EOMs intact bilaterally Neck: Neck: normal visual inspection Chest: Chest palpation & inspection: normal inspection of the chest Resp: Effort & Inspection: normal respiratory effort Auscultation: clear to auscultation bilaterally Cardio: Rate: regular rate Rhythm: regular rhythm GI: GI Palp: Yes Soft to palpation and No Tenderness to palpation present (GI) Auscultation: normal bowel sounds : General: Yes bladder normal to palpation and Yes no CVA tenderness Back/Spine/Pelvis: Back: no CVA tenderness Skin: General skin exam: normal color Rashes: no rashes Neuro: General: patient oriented x3, moves all extremities, no meningeal signs, no focal motor deficits and CN's II-XI intact bilaterally Speech: normal speech Gait exam (Neuro): Normal gait present Extrem: General: normal to inspection and no pedal edema Other: no acute calf tenderness Psych: Mental Status: mental status grossly normal Affect: normal affect Attitude: cooperative Course Course Emergency Course: pt was stable in the ED, felt somewhat more normal. he ambulated normally in the ED. Reevaluation(s) Reevaluation #1: Improved sxs and VS. Date: 04/09/22 Time: 14:01 Vital Signs Vital signs: Vital Signs Temperature 36.6 C 04/09/22 13:00 Pulse Rate 106 H 04/09/22 13:00 Respiratory Rate 20 04/09/22 13:00
--- NOTE | 2022-04-09 14:59 | PC.NURSE ---
pt resting per cot, call garcia in reach. lights out for comfort. iv fluids infusing without difficulty.
[2022-04-09 15:01] LABS: Amphetamine Screen Urine Negative (Negative); Barbiturate Screen Urine Negative (Negative); Benzodiazepines Screen Urine Negative (Negative); Cannabinoid Screen Urine Negative (Negative); Cocaine Screen Urine Negative (Negative); Methadone Screen Urine Negative (Negative); Opiate Screen Urine Positive (Negative); Phencyclidine Screen Urine Negative (Negative)
--- NOTE | 2022-04-09 15:24 | PC.NURSE ---
pt up and ambulated to bathroom, feeling better.
[2022-04-09 16:04] VITALS: BP 139/93; PULSE 93; RESP 20; TEMP 37.1; O2SAT 93
[2022-04-09 16:40] LABS: Reflex Lactic Acid Yes or No Add Lactic
== END 2022-04-09 16:28 | disposition home or self-care (01) ==
PROVIDERS: Emergency Provider Emergency Medicine; PCP Family Medicine
DX: E86.0 Dehydration (principal); E87.6 Hypokalemia; F41.9 Anxiety disorder, unspecified; K27.9 Peptic ulcer, site unspecified, unspecified as acute or chronic, without hemorrhage or perforation; Z72.0 Tobacco use
CPT/HCPCS: 36415; 70450; 71045; 80053; 80307; 81003; 83605; 84484; 85025; 93005; 96361; 96365; 96375; 99284; A9270; J2405; J3480; J7030

== ENCOUNTER 2022-05-26 10:23 | Emergency (ER) | payer OTHER, SELFPAY ==
[2022-05-26] VITALS (10 sets, daily range): BP systolic 90–111; BP diastolic 63–78; PULSE 75–104; RESP 10–16; TEMP 36.4; O2SAT 98–100
--- NOTE | ~2022-05-26 | CT_ITS ---
EXAMINATION: CT brain wo con DATE: 05/26/2022 11:18 INDICATION: Dizziness. Headache. TECHNIQUE: Computed tomography (CT) of the head was performed without intravenous contrast. The mA wa s adjusted according to patient size. Iterative reconstruction technique was employed. The dose-lengt h product was 605.33 mGy-cm. COMPARISON: Head CT 11/05/2020, 04/09/2022 FINDINGS: There is no intracranial hemorrhage, acute infarction, or abnormal intracranial mass lesion . The ventricles are normal in size. There is mild mucosal thickening in the paranasal sinuses. The m astoid air cells are normal. The orbits are normal. IMPRESSION: 1. Normal brain. Reviewed, dictated and finalized at location A. IMPRESSION: 1. Normal brain.
--- NOTE | ~2022-05-26 | XR_ITS ---
EXAMINATION: XR chest 1V portable DATE: 05/26/2022 11:21 INDICATION: Shortness of breath and dizziness TECHNIQUE: frontal view of the chest was obtained. COMPARISON: Chest radiograph dated 04/09/2022 and 11/05/2020 FINDINGS: Small left paracardial fat pad with unchanged adjacent mild lingular atelectasis/scarring. Symmetric small nipple shadows projecting caudal to the bilateral anterior fifth ribs. No new airspace opacitie s, pulmonary edema, pleural effusion or pneumothorax. The cardiomediastinal silhouette is normal. Vis ualized bones and soft tissues are unremarkable. IMPRESSION: 1. Unchanged mild atelectasis/scarring at the lingula. No acute cardiopulmonary disease. Reviewed, dictated and finalized at location B.
[2022-05-26 10:36] LABS: Glucose Point of Care 149 mg/dl (65-105)
--- NOTE | 2022-05-26 10:41 | ED.DIZZY ---
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 The patient Develops dizziness/ lightheadedness/ black out when he sits up. -- he had 2 episodes of fall/Syncope in the past 7 days. -- Questionable seizure like activity during 1 of those syncopal spells. no focal neuro deficits. No chest pain or palpitation. The patient called his primary care physician who advised him to come to the ER. Patient is noted to have blood pressure systolic in the 90s and he continues to take Norvasc, lisinopril and hydrochlorothiazide. the patient quit taking gabapentin in view of the dizziness. MD elicited complaint: dizziness, lightheadedness and near syncope Onset (ago): day(s) ( Started 7 days ago.) Timing: gradual onset Severity: moderate Description: lightheadedness, off-balance and near-syncope Context: change in body position History of similar symptoms: No Exacerbating factors: change in body position Relieving factors: nothing Associated symptoms: denies other symptoms Related Data Home Medications Medication Instructions Recorded Confirmed ferrous sulfate 325 mg (65 mg 325 mg PO DAILY 04/05/21 05/26/22 iron) tablet hydrocodone 5 mg-acetaminophen 325 1 tablet PO TID PRN Pain 04/05/21 05/26/22 mg tablet amlodipine 10 mg tablet 1 tablet PO DAILY 05/26/22 05/26/22 famotidine 40 mg tablet 1 tablet PO DAILY 05/26/22 05/26/22 gabapentin 300 mg tablet 300 mg PO TID 05/26/22 05/26/22 lisinopril 20 1 tablet PO DAILY 05/26/22 05/26/22 mg-hydrochlorothiazide 25 mg tablet Allergies Allergy/AdvReac Type Severity Reaction Status Date / Time No Known Drug Allergies Allergy Unknown Unknown Verified 05/26/22 10:44 Review of Systems Review of Systems: All systems reviewed & are unremarkable except as noted in HPI and below Constitutional: Constitutional: Reports as per HPI and Reports no additional constitutional complaints Eyes: Eyes: Reports as per HPI and Reports no additional eye complaints ENT: Reports system reviewed and no additional complaints, except as documented and Reports as per HPI Cardiovascular: Cardiovascular: Reports as per HPI and Reports no additional cardiovascular complaints Respiratory: Respiratory: Reports as per HPI and Reports no additional respiratory complaints Gastrointestinal: Gastrointestinal: Reports as per HPI and Reports no additional gastrointestinal complaints Genitourinary: Genitourinary: Reports no additional male genitourinary complaints and Reports as per HPI Musculoskeletal: Musculoskeletal: Reports no additional musculoskeletal complaints, Reports as per HPI and Reports back pain Comments: Chronic low back pain. Integumentary/Breasts: Skin/Breast: Reports system reviewed and no additional complaints, except as docu and Reports as per HPI Neurologic: Reports system reviewed and no additional complaints, except as documented and Reports as per HPI Comments: History of peripheral neuropathy with pins and needles both lower extremities. Psychiatric: Psychiatric: Reports no additional psychiatric complaints and Reports as per HPI Endocrine: Endocrine: Reports no additional endocrine complaints and Reports as per HPI Hematologic/Lymphatic: Hematologic/Lymphatic: Reports no additional hematologic/lymphatic complaints and Reports as per HPI Allergic/Immunologic: Allergic/Immunologic: Reports no additional allergic/immunologic complaints PMFSH Past Medical History Medical History Anxiety Back pa
--- NOTE | 2022-05-26 11:01 | ECG_ITS ---
Measurements Intervals [place] Rate: 85 P: 82 [place]: 169 QRS: 79 QRSD: 87 T: 73 QT: 314 QTc: 374 Interpretive Statements SINUS RHYTHM DELAYED PRECORDIAL R/S TRANSITION BORDERLINE ECG Electronically Signed On 05-26-2022 12:03:49 CDT by Kal Roberts D.O.
[2022-05-26] MEDS: LACTATED RINGERS 1,000 ML 999 ML IV CONT (11:30)
--- NOTE | 2022-05-26 11:33 | PC.NURSE ---
PT RETURNED FROM CT, LAB WORK COMPLETED, EKG BEING COMPLETED AT THIS TIME. PT DENIES ANY NEEDS OR COMPLAINTS. IVF INFUSING ORDERED AT THIS TIME WITHOUT DIFFICULTY.
[2022-05-26 11:36] LABS: Basophils Absolute Auto 0.06 K/mm3 (0.00-0.10); Basophils Percent Auto 0.5 % (0.0-1.0); Eosinophils Absolute Auto 0.01 K/mm3 (0.02-0.50); Eosinophils Percent Auto 0.1 % (1.0-6.0); Hematocrit 30.8 % (40.0-54.0); Hemoglobin 10.2 g/dL (14.0-18.0); Immature Granulocyte Absolute 0.08 K/mm3 (0.00-0.00); Immature Granulocyte Percent A 0.7 % (0.0-0.0); Lymphocytes Absolute Auto 2.11 K/mm3 (1.10-4.50); Lymphocytes Percent Auto 18.9 % (18.0-42.0); Mean Corpuscular HGB Conc 33.1 g/dL (32.0-36.0); Mean Corpuscular Hemoglobin 36.8 pg (27.0-31.0); Mean Corpuscular Volume 111.2 fL (78.0-102.0); Mean Platelet Volume 9.4 fl (8.7-11.0); Monocytes Absolute Auto 0.86 K/mm3 (0.10-0.90); Monocytes Percent Auto 7.7 % (2.0-11.0); Neutrophils Absolute Auto 8.1 K/mm3 (1.7-7.2); Neutrophils Percent Auto 72.1 % (50.0-70.0); Platelet Count Result 236 K/mm3 (150-420); Red Blood Count 2.77 M/mm3 (4.70-6.10); Red Cell Distribution Width 14.8 % (11.6-14.4); White Blood Count 11.2 K/mm3 (4.8-10.8)
[2022-05-26 11:49] LABS: Prothrombin Time 10.9 Seconds (9.50-12.10)
[2022-05-26 11:54] LABS: Lactic Acid Reflex 1.6 mmol/L (0.4-2.0)
[2022-05-26 12:01] LABS: Alanine Aminotransferase 31 U/L (16-63); Albumin Level 3.7 g/dL (3.4-5.0); Alkaline Phosphatase 74 U/L (46-116); Anion Gap 10 mmol/L (8-16); Aspartate Amino Transferase 30 U/L (15-37); Bilirubin,Total 0.5 mg/dL (0.00-1.00); Blood Urea Nitrogen 36 mg/dL (7-18); Carbon Dioxide 22 mmol/L (21-32); Chloride 103 mmol/L (98-108); Estimated CRCL calculation 32 ml/min; Estimated Glomerular Filt Rate 37; Glucose 120 mg/dL (70-99); Lipase 148 U/L (73-393); Magnesium 1.7 mg/dL (1.8-2.4); NT Pro B Type Natriuretic Pept 215 pg/mL (0-125); Osmolality Calculated 289 mOsm/kg (285-295); Potassium 4.7 mmol/L (3.5-5.1); Sodium 135 mmol/L (136-145); Total Protein 7.4 g/dL (6.4-8.2); Troponin I 18.3 ng/L (0.00-60.4)
--- NOTE | 2022-05-26 12:02 | PC.NURSE ---
PT HAS IVF INFUSING ORDERED WITHOUT DIFFICULTY. ERP AT BEDSIDE. NAD NOTED. WILL CONTINUE TO MONITOR.
== END 2022-05-26 12:30 | disposition home or self-care (01) ==
PROVIDERS: Emergency Provider Internal Medicine Critical Care Medicine; PCP Family Medicine
DX: R42 Dizziness and giddiness (principal); R55 Syncope and collapse; N18.30 Chronic kidney disease, stage 3 unspecified; D64.9 Anemia, unspecified
CPT/HCPCS: 36415; 70450; 71045; 80053; 82948; 83605; 83690; 83735; 83880; 84484; 85025; 85610; 93005; 96360; 99284; J7120

== ENCOUNTER 2022-07-19 07:18 | Emergency (ER) | payer OTHER, SELFPAY ==
--- NOTE | ~2022-07-19 | CT_ITS ---
EXAMINATION: CT abdomen pelvis w con DATE: 07/19/2022 09:01 INDICATION: Epigastric pain TECHNIQUE: Computed tomography (CT) of the abdomen and pelvis was performed with 100 mL Omnipaque-350 intravenous contrast. Automated exposure control and iterative reconstruction technique were employe d. The dose-length product was 226.45 mGy-cm. COMPARISON: 08/29/2019 FINDINGS: Mild emphysema. Mild dependent atelectasis in the left lower lobe. Arch size is normal. No pericardia l or pleural effusion. Postoperative change of colonic interposition in the anterior mediastinum. The re is mild edematous wall thickening of the interposed colonic segment at its anastomosis with the st omach. There are few diverticula along the sigmoid colon without adjacent inflammatory change to sugg est diverticulitis. No bowel obstruction. Liver, gallbladder, spleen, pancreas, bilateral adrenal gla nds and kidneys are normal. Bladder is normal. No free intraperitoneal gas or fluid. No pathologicall y enlarged abdominal or pelvic lymphadenopathy. Mild to moderate thoracolumbar spondylosis. IMPRESSION: 1. Postoperative change of prior colonic interposition with mild wall thickening of the interposed co lonic segment at its anastomosis with the stomach which may be related to reflux. Reviewed, dictated and finalized at location A. IMPRESSION: 1. Postoperative change of prior colonic interposition with mild wall thickenin g of the interposed colonic segment at its anastomosis with the stomach which m ay be related to reflux.
[2022-07-19 07:23] VITALS: BP 101/84; PULSE 108; RESP 16; TEMP 36.5; O2SAT 100
--- NOTE | 2022-07-19 07:26 | ED.GENADULT ---
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 The patient has had chronic epigastric pain which got worse at 3:00 a.m. today. -- Patient has been drinking alcohol. Throat no fever. No nausea /vomiting. No hematemesis/ melena. he had upper GI endoscopy many years ago which revealed bleeding peptic ulcers. MD complaint: Started 4 hours ago Onset (ago): hour(s) Location: abdomen Radiation: non-radiation Severity: severe Quality: burning Pain Consistency: constant Relieving factors: none Exacerbating factors: none Associated symptoms: denies other symptoms Treatments prior to arrival: none Related Data Home Medications Medication Instructions Recorded Confirmed ferrous sulfate 325 mg (65 mg 325 mg PO DAILY 04/05/21 07/19/22 iron) tablet hydrocodone 5 mg-acetaminophen 325 1 tablet PO TID PRN Pain 04/05/21 07/19/22 mg tablet amlodipine 5 mg tablet 5 mg PO DAILY 07/19/22 07/19/22 lisinopril 20 1 tablet PO DAILY 07/19/22 07/19/22 mg-hydrochlorothiazide 25 mg tablet pregabalin 50 mg capsule 50 mg PO BID 07/19/22 07/19/22 trazodone 100 mg tablet 200 mg PO DAILY 07/19/22 07/19/22 Allergies Allergy/AdvReac Type Severity Reaction Status Date / Time No Known Drug Allergies Allergy Unknown Unknown Verified 07/19/22 07:34 Review of Systems Review of Systems: All systems reviewed & are unremarkable except as noted in HPI and below Constitutional: Constitutional: Reports as per HPI and Reports no additional constitutional complaints Eyes: Eyes: Reports as per HPI and Reports no additional eye complaints ENT: Reports system reviewed and no additional complaints, except as documented and Reports as per HPI Cardiovascular: Cardiovascular: Reports as per HPI and Reports no additional cardiovascular complaints Respiratory: Respiratory: Reports as per HPI and Reports no additional respiratory complaints Gastrointestinal: Gastrointestinal: Reports as per HPI, Reports no additional gastrointestinal complaints and Reports abdominal pain Comments: epigastric pain Genitourinary: Genitourinary: Reports no additional male genitourinary complaints Musculoskeletal: Musculoskeletal: Reports no additional musculoskeletal complaints, Reports as per HPI and Reports arthralgias Comments: intermittent joint pains Integumentary/Breasts: Skin/Breast: Reports system reviewed and no additional complaints, except as docu and Reports as per HPI Neurologic: Reports system reviewed and no additional complaints, except as documented and Reports as per HPI Psychiatric: Psychiatric: Reports no additional psychiatric complaints and Reports as per HPI Endocrine: Endocrine: Reports no additional endocrine complaints and Reports as per HPI Hematologic/Lymphatic: Hematologic/Lymphatic: Reports no additional hematologic/lymphatic complaints and Reports as per HPI Allergic/Immunologic: Allergic/Immunologic: Reports no additional allergic/immunologic complaints and Reports as per HPI PMFSH Past Medical History Medical History Anxiety Back pain Dehydration Gout Hypokalemia Peptic ulcer disease Surgical History Surgical History H/O colectomy H/O esophagectomy with colon segment anastomosis at 4 years-old after swallowing caustic substance. History of gastrostomy tube placement Social History Social History Smoking status: Current every day smoker Alcohol intake: current Alcohol use details: daily Gender identity (i
--- NOTE | 2022-07-19 07:46 | ECG_ITS ---
Measurements Intervals [place] Rate: 99 P: -18 ND: 157 QRS: -21 QRSD: 78 T: -13 QT: 321 QTc: 412 Interpretive Statements SINUS RHYTHM T WAVE ABNORMALITY IN INFERIOR LEADS- CONSIDER ISCHEMIA BASELINE ARTIFACT- III, V4 ABNORMAL ECG COMPARED TO ECG 05/26/2022 11:38:17 T WAVE ABNORMALITY NOW PRESENT Electronically Signed On 07-19-2022 8:35:32 CDT by Kal Roberts D.O.
[2022-07-19] MEDS: ONDANSETRON INJ 4 MG/2 ML VIAL IV PUSH (07:51)
[2022-07-19] MEDS: HYDROmorphone HCL INJ (*CRX) 2 MG/ML VIAL 0.5 MG IV PUSH (07:51)
[2022-07-19 07:53] LABS: Basophils Absolute Auto 0.07 K/mm3 (0.00-0.10); Basophils Percent Auto 0.8 % (0.0-1.0); Eosinophils Absolute Auto 0.39 K/mm3 (0.02-0.50); Eosinophils Percent Auto 4.2 % (1.0-6.0); Hematocrit 32.2 % (40.0-54.0); Hemoglobin 10.6 g/dL (14.0-18.0); Immature Granulocyte Absolute 0.11 K/mm3 (0.00-0.00); Immature Granulocyte Percent A 1.2 % (0.0-0.0); Lymphocytes Absolute Auto 2.21 K/mm3 (1.10-4.50); Lymphocytes Percent Auto 23.7 % (18.0-42.0); Mean Corpuscular HGB Conc 32.9 g/dL (32.0-36.0); Mean Corpuscular Hemoglobin 33.8 pg (27.0-31.0); Mean Corpuscular Volume 102.5 fL (78.0-102.0); Mean Platelet Volume 8.1 fl (8.7-11.0); Monocytes Absolute Auto 0.87 K/mm3 (0.10-0.90); Monocytes Percent Auto 9.3 % (2.0-11.0); Neutrophils Absolute Auto 5.7 K/mm3 (1.7-7.2); Neutrophils Percent Auto 60.8 % (50.0-70.0); Platelet Count Result 269 K/mm3 (150-420); Red Blood Count 3.14 M/mm3 (4.70-6.10); Red Cell Distribution Width 14.8 % (11.6-14.4); White Blood Count 9.3 K/mm3 (4.8-10.8)
[2022-07-19 08:07] LABS: Prothrombin Time 10.8 Seconds (9.50-12.10)
[2022-07-19 08:11] LABS: Lactic Acid Reflex 2.5 mmol/L (0.4-2.0)
[2022-07-19 08:22] LABS: Alanine Aminotransferase 11 U/L (16-63); Albumin Level 2.9 g/dL (3.4-5.0); Alkaline Phosphatase 99 U/L (46-116); Anion Gap 10 mmol/L (8-16); Aspartate Amino Transferase 12 U/L (15-37); Bilirubin Direct 0.1 mg/dL (0-0.2); Bilirubin,Total 0.3 mg/dL (0.00-1.00); Blood Urea Nitrogen 17 mg/dL (7-18); Carbon Dioxide 30 mmol/L (21-32); Chloride 100 mmol/L (98-108); Estimated Glomerular Filt Rate > 60; Glucose 109 mg/dL (70-99); Lipase 89 U/L (73-393); Osmolality Calculated 292 mOsm/kg (285-295); Potassium 3.7 mmol/L (3.5-5.1); Sodium 140 mmol/L (136-145); Total Protein 6.5 g/dL (6.4-8.2); Troponin I 5.2 ng/L (0.00-60.4)
[2022-07-19] MEDS: LACTATED RINGERS 1,000 ML 999 ML IV CONT (08:44)
[2022-07-19] MEDS: SODIUM CHLORIDE 0.9% IV 1,000 ML 999 ML IV CONT (08:45)
[2022-07-19] MEDS: PANTOPRAZOLE SODIUM IV 40 MG VIAL IV PUSH (09:58)
[2022-07-19 09:59] VITALS: BP 122/93; PULSE 84; RESP 16; TEMP 36.4; O2SAT 100
[2022-07-19 10:50] LABS: Reflex Lactic Acid Yes or No Add Lactic
== END 2022-07-19 10:04 | disposition home or self-care (01) ==
PROVIDERS: Emergency Provider Internal Medicine Critical Care Medicine; PCP Family Medicine
DX: K21.9 Gastro-esophageal reflux disease without esophagitis (principal); K27.9 Peptic ulcer, site unspecified, unspecified as acute or chronic, without hemorrhage or perforation; D53.9 Nutritional anemia, unspecified
CPT/HCPCS: 36415; 74177; 80048; 80076; 83605; 83690; 84484; 85025; 85610; 93005; 96361; 96374; 96375; 99284; C9113; J1170; J2405; J7030; J7120; Q9967

== ENCOUNTER 2022-11-25 14:48 | Outpatient (CLI) | payer OTHER, SELFPAY ==
--- NOTE | ~2022-11-25 | XR_ITS ---
EXAM: XR shoulder RT min 2V DATE: 11/25/2022 15:19 HISTORY: strain muscle and tendon S/P FALL THRU CEILING X2MO AGO . COMPARISON: None available. FINDINGS: Surgical lisa over the midline lower neck. Normal mineralization. No fracture or disloca tion. No lytic or blastic lesion. Mild degenerative change at the AC joint and glenohumeral joint. No erosion or periosteal change. Soft tissues within normal limits. IMPRESSION: No acute osseous finding in the right shoulder. Reviewed, dictated and finalized at location K. [facility]
== END 2022-11-25 14:49 | disposition home or self-care (01) ==
LOC: CHSIMG 14:51
PROVIDERS: PCP Family Medicine; Visit Provider Family Medicine
DX: M25.511 Pain in right shoulder (principal); S46.811A Strain of other muscles, fascia and tendons at shoulder and upper arm level, right arm, initial encounter
CPT/HCPCS: 73030

== ENCOUNTER 2023-05-22 12:51 | Outpatient (CLI) | payer OTHER, SELFPAY ==
--- NOTE | ~2023-05-22 | XR_ITS ---
EXAM: XR_CERV2-3V_CR DATE: 05/22/2023 13:26 HISTORY: CERVICVALGIA,CHRONIC,INJURY XYEARS AGO . COMPARISON: 01/05/2021. FINDINGS: Craniocervical association and atlantoaxial joint are aligned. No prevertebral soft tissue swelling. Cervical spine straightening. 3 mm retrolisthesis at C5-6. Vertebral body heights are main tained. Moderate disc space narrowing and marginal/uncovertebral joint osteophytosis at C5-6. Mild fa cet sclerosis and hypertrophy. Surgical lisa over the lower neck. IMPRESSION: Moderate degenerative disc disease at C5-6. Reviewed, dictated and finalized at location K.
[2023-05-26 12:49] LABS: Testosterone Free 65.3 pg/mL (35.0-155.0); Testosterone Total 367 ng/dL (250-1100)
[2023-05-29 06:25] LABS: FSH 14.3 mIU/mL (1.6-8.0); LH 7.4 mIU/mL (1.5-9.3)
[2023-05-29 21:44] LABS: Estradiol, Ultrasensitive 14 pg/mL (< OR = 29)
== END 2023-05-22 12:52 | disposition home or self-care (01) ==
LOC: CHSLAB 12:53
PROVIDERS: PCP Family Medicine; Visit Provider Family Medicine
DX: R53.1 Weakness (principal); R53.83 Other fatigue; N52.9 Male erectile dysfunction, unspecified; M50.322 Other cervical disc degeneration at C5-C6 level
CPT/HCPCS: 36415; 72040; 82670; 83001; 83002; 84402; 84403

== ENCOUNTER 2023-10-26 12:51 | Outpatient (CLI) | payer OTHER, SELFPAY ==
--- NOTE | ~2023-10-26 | US_ITS ---
EXAMINATION: US arterial ankle brachial ind DATE: 10/26/2023 13:31 INDICATION: Other specified signs and symptoms involving respiratory system. Neuropathy with bilatera l lower limb pain, tingling and swelling. TECHNIQUE: Segmental pressures and plethysmographic and Doppler waveforms of the brachial and lower e xtremity arteries were obtained. COMPARISON: None. FINDINGS: Right and left brachial artery pressures of 182 mm Hg and 191 mm Hg, respectively, are concordant (no rmal difference <= 30 mmHg). The right ankle-brachial index (NIKKI) is 1.06 (normal >= 0.9-1.0). The right great toe-brachial index (TBI) is 0.91 (normal >= 0.65). Arterial Doppler waveforms are biphasic with brisk systolic upstrokes at both right posterior tibial and dorsalis pedis arteries. The left NIKKI is 1.03. The left TBI is 0.88. Arterial Doppler waveforms are biphasic with brisk systol ic upstrokes at both left posterior tibial and dorsalis pedis arteries. IMPRESSION: 1. No significant arterial occlusive disease to either lower limb with normal bilateral ABIs and TBI' s Reviewed, dictated and finalized at location A. IST ATTENDANT IMPRESSION: 1. No significant arterial occlusive disease to either lower limb with normal b ilateral ABIs and TBI's
[2023-10-26 13:06] LABS: Basophils Absolute Auto 0.08 K/mm3 (0.00-0.10); Basophils Percent Auto 0.8 % (0.0-1.0); Eosinophils Absolute Auto 0.21 K/mm3 (0.02-0.50); Eosinophils Percent Auto 2.1 % (1.0-6.0); Hematocrit 43.6 % (40.0-54.0); Hemoglobin 14.5 g/dL (14.0-18.0); Immature Granulocyte Absolute 0.04 K/mm3 (0.00-0.00); Immature Granulocyte Percent A 0.4 % (0.0-0.0); Lymphocytes Absolute Auto 3.63 K/mm3 (1.10-4.50); Lymphocytes Percent Auto 36.4 % (18.0-42.0); Mean Corpuscular HGB Conc 33.3 g/dL (32.0-36.0); Mean Corpuscular Hemoglobin 31.5 pg (27.0-31.0); Mean Corpuscular Volume 94.8 fL (78.0-102.0); Mean Platelet Volume 9.3 fl (8.7-11.0); Monocytes Absolute Auto 0.55 K/mm3 (0.10-0.90); Monocytes Percent Auto 5.5 % (2.0-11.0); Neutrophils Absolute Auto 5.5 K/mm3 (1.7-7.2); Neutrophils Percent Auto 54.8 % (50.0-70.0); Platelet Count Result 207 K/mm3 (150-420); Red Cell Distribution Width 13.9 % (11.6-14.4)
[2023-10-26 13:48] LABS: Alanine Aminotransferase 22 U/L (16-63); Albumin Level 4.2 g/dL (3.4-5.0); Alkaline Phosphatase 72 U/L (46-116); Anion Gap 6 mmol/L (8-16); Aspartate Amino Transferase 13 U/L (15-37); Bilirubin,Total 0.4 mg/dL (0.00-1.00); Blood Urea Nitrogen 17 mg/dL (7-18); Calcium 9.1 mg/dL (8.5-10.1); Carbon Dioxide 31 mmol/L (21-32); Chloride 99 mmol/L (98-108); Cholesterol 178 mg/dL (0-200); Estimated Glomerular Filt Rate > 60; Glucose 93 mg/dL (70-99); HDL Direct 47 mg/dL (40-60); LDL Cholesterol Calculated 105 mg/dL (<130); Osmolality Calculated 283 mOsm/kg (285-295); Potassium 4.4 mmol/L (3.5-5.1); Sodium 136 mmol/L (136-145); Total Protein 7.2 g/dL (6.4-8.2); Triglycerides 128 mg/dL (0-150)
== END 2023-10-26 12:52 | disposition home or self-care (01) ==
LOC: CHSIMG 12:55
PROVIDERS: PCP Nurse Practitioner Adult Health; Visit Provider Family Medicine
DX: I10 Essential (primary) hypertension (principal); G64 Other disorders of peripheral nervous system; F17.200 Nicotine dependence, unspecified, uncomplicated; E78.5 Hyperlipidemia, unspecified; R53.1 Weakness; R53.83 Other fatigue
CPT/HCPCS: 36415; 80053; 80061; 85025; 93922

== ENCOUNTER 2024-01-19 21:14 | Emergency (ER) | payer OTHER, SELFPAY ==
[2024-01-19] VITALS (16 sets, daily range): BP systolic 156–198; BP diastolic 93–122; PULSE 74–98; RESP 12–24; TEMP 36.8; O2SAT 96–97
--- NOTE | ~2024-01-19 | XR_ITS ---
EXAMINATION: XR chest 1V portable Exam Date/Time: 01/19/2024 21:55 TRANSPORTATION ESCORT HISTORY: cough Comparison: 05/26/2022. RESULT: Lines, tubes, and devices: None. Lungs and pleura: Segmental left basilar airspace disease. Cardiomediastinal silhouette: Stable. Other: No acute osseous or upper abdominal finding. IMPRESSION: Left basilar pneumonia or atelectasis. Reviewed, dictated and finalized at location K. [employer]
--- NOTE | ~2024-01-19 | CT_ITS ---
EXAMINATION: CT brain wo con DATE: 01/19/2024 22:03 INDICATION: ams . TECHNIQUE: Computed tomography (CT) of the head was performed without intravenous contrast. The mA wa s adjusted according to patient size. Iterative reconstruction technique was employed. The dose-lengt h product was 605.33 mGy-cm. COMPARISON: None. FINDINGS: No acute intracranial hemorrhage or extra-axial fluid collection. No hydrocephalus, mass, or herniation. No acute ischemic infarct. Subtle hyperdensity in the distal portion of the right M1 segment and a po rtion of a proximal M2 branch. Unremarkable dural venous sinus attenuation. No acute osseous abnormality. Ethmoid mucosal thickening, bilateral mastoid effusions, the remaining aerated spaces are clear. Atherosclerotic intracranial calcifications IMPRESSION: Hyperdensity in the right MCA (distal M1 segment and a proximal M2 segment) as can be seen with acute thrombus. Consider CTA of the head and neck for further evaluation. Results reported telephonically to Dr. Smith by Dr. Noe at 10:17 PM on 01/19/2024. Reviewed, dictated and finalized at location K. T END SOFTWARE DEVELOPER
--- NOTE | ~2024-01-19 | CT_ITS ---
EXAMINATION: CTA brain carotid DATE: 01/19/2024 23:04 INDICATION: Hyperdense right MCA on prior head CT. TECHNIQUE: Computed tomographic angiography (CTA) of the head and neck was performed with 100 mL Omni paque-350 intravenous contrast. Automated exposure control and iterative reconstruction technique wer e employed. The dose-length product was 729.60 mGy-cm. Maximum intensity projection created by the t echnologist on a separate workstation. Coronal MIP images of the brain created on PACS and reviewed a t the time of study interpretation. COMPARISON: CT brain, same date. FINDINGS: CTA HEAD: No large vessel occlusion, aneurysm, high flow vascular malformation, nidus or extravasation. Patent cerebral veins. Symmetric parenchymal enhancement. CTA NECK: Aortic arch and proximal great vessels: Calcified and noncalcified plaque at the aortic arch. Normal arch anatomy. Right common carotid, carotid bifurcation, and internal carotid artery: Mild calcified and noncalcifi ed plaque. Suggestion of early plaque ulceration at the carotid bulb. There is 15% stenosis of the pr oximal right internal carotid artery relative to normal distal artery lumen diameter (NASCET criteria ). Left common carotid, carotid bifurcation, and internal carotid artery: Mild calcified and noncalcifie d plaque.Plaque ulceration likely present at the carotid bulb. There is 0% stenosis of the proximal l eft internal carotid artery relative to normal distal artery lumen diameter (NASCET criteria). Vertebral arteries: Calcified and noncalcified plaque at the origin and in the proximal of left verte bral artery causing moderate stenosis. Calcified and noncalcified plaque at the origin of the left ve rtebral artery causing no significant stenosis. The left vertebral artery is dominant. Other findings: Status post esophageal reconstruction surgery. Mucosal thickening and aerated secreti ons in the left maxillary sinus. Emphysematous changes in the lungs. Degenerative changes in the cerv ical spine with moderate central canal stenosis and bilateral neural foraminal narrowing at C5-6. IMPRESSION: No large vessel intracranial occlusion, high-grade intracranial stenosis, or aneurysm. No carotid or vertebral artery occlusion, dissection, or significant stenosis. Mild calcified and noncalcified plaque in bilateral carotid bulbs with suspected early plaque ulcerat ion. Left maxillary sinus findings may represent acute sinusitis in the appropriate clinical context. Reviewed, dictated and finalized at location K. ER MEAT IMPRESSION: No large vessel intracranial occlusion, high-grade intracranial stenosis, or an eurysm. No carotid or vertebral artery occlusion, dissection, or significant stenosis. Mild calcified and noncalcified plaque in bilateral carotid bulbs with suspecte d early plaque ulceration. Left maxillary sinus findings may represent acute sinusitis in the appropriate clinical context.
--- NOTE | 2024-01-19 21:16 | ECG_ITS ---
Measurements Intervals [place] Rate: 84 P: 61 NH: 222 QRS: 50 QRSD: 88 T: 67 QT: 365 QTc: 432 Interpretive Statements SINUS RHYTHM WITH FIRST DEGREE AV BLOCK POSSIBLE LEFT ATRIAL ENLARGEMENT T WAVE ABNORMALITY IN ANTERIOR LEADS- CONSIDER ISCHEMIA ABNORMAL ECG COMPARED TO ECG 07/19/2022 07:46:45 FIRST DEGREE AV BLOCK NOW PRESENT Electronically Signed On 01-20-2024 6:40:15 LAUNDRY PRESS OPERATOR by Kal Roberts D.O.
--- NOTE | 2024-01-19 21:19 | ED.GENADULT ---
HPI - General Adult General Chief complaint: Altered Mental Status Stated complaint: High BP Time Seen by Provider: 01/19/24 21:15 Source: patient Mode of arrival: ambulatory Limitations: no limitations History of Present Illness HPI narrative: Patient is a 58-year-old male with a event this evening where he went to the bathroom and passed out thereafter. It appears he was unconscious for a few minutes and the neighbor did CPR. It is unclear if CPR was required or not during the circumstance. EMS was called and by the time they got there the patient was AAO x4. No injuries occurred to the patient. Based on the family's discussion, it is possible that this was a seizure. He was flopping around during the event. His blood pressures been running very high and EMS also noted very high blood pressure. Onset (ago): minute(s) (30) Location: head Radiation: non-radiation Severity: mild Severity scale (1-10): 3 Quality: sharp Pain Consistency: constant Relieving factors: none Exacerbating factors: none Associated symptoms: headaches ( after event), seizure ( Questionable event) and syncope ( for a few minutes witnessed by family and possible seizure activity) Treatments prior to arrival: none Related Data Home Medications Medication Instructions Recorded Confirmed hydrocodone 5 mg-acetaminophen 325 1 tablet PO TID PRN Pain 04/05/21 01/19/24 mg tablet trazodone 100 mg tablet 200 mg PO DAILY 07/19/22 01/19/24 alprazolam 0.25 mg tablet 0.25 mg PO QHS PRN Anxiety 01/22/23 01/19/24 naproxen 500 mg tablet 500 mg PO BID 01/22/23 01/19/24 bupropion HCl 300 mg 24 hr tablet, 300 mg PO DAILY 01/19/24 01/19/24 extended release (Wellbutrin XL) lisinopril 30 mg tablet 30 mg PO DAILY 01/19/24 01/19/24 pregabalin 200 mg capsule 200 mg PO BID 01/19/24 01/19/24 Allergies Allergy/AdvReac Type Severity Reaction Status Date / Time No Known Drug Allergies Allergy Unknown Unknown Verified 01/19/24 21:59 Review of Systems Review of Systems: All systems reviewed & are unremarkable except as noted in HPI and below Constitutional: Constitutional: Reports no additional constitutional complaints Eyes: Eyes: Reports no additional eye complaints ENT: Reports system reviewed and no additional complaints, except as documented Cardiovascular: Cardiovascular: Reports no additional cardiovascular complaints Respiratory: Respiratory: Reports no additional respiratory complaints Gastrointestinal: Gastrointestinal: Reports no additional gastrointestinal complaints Genitourinary: Genitourinary: Reports no additional male genitourinary complaints Musculoskeletal: Musculoskeletal: Reports no additional musculoskeletal complaints Integumentary/Breasts: Skin/Breast: Reports system reviewed and no additional complaints, except as docu Neurologic: Reports system reviewed and no additional complaints, except as documented Psychiatric: Psychiatric: Reports no additional psychiatric complaints Endocrine: Endocrine: Reports no additional endocrine complaints Hematologic/Lymphatic: Hematologic/Lymphatic: Reports no additional hematologic/lymphatic complaints Allergic/Immunologic: Allergic/Immunologic: Reports no additional allergic/immunologic complaints PMFSH Past Medical History Medical History Anxiety Back pain Dehydration Gout Hypokalemia Peptic ulcer disease Surgical History Surgical History H/O colectomy H/O esophagectomy with colon segment anastomosis at 4 years-old after swallowing caustic substance. History of gastrostomy tube placement Family History Family History Father Diabetes mellitus Mother Cerebrovascular accident Social History Social History Smoking status: Current every day smoker Alcohol intake
[2024-01-19 21:30] LABS: Basophils Absolute Auto 0.08 K/mm3 (0.00-0.10); Eosinophils Percent Auto 2.5 % (1.0-6.0); Hematocrit 40.6 % (40.0-54.0); Hemoglobin 13.6 g/dL (14.0-18.0); Immature Granulocyte Absolute 0.05 K/mm3 (0.00-0.00); Immature Granulocyte Percent A 0.6 % (0.0-0.0); Lymphocytes Absolute Auto 3.06 K/mm3 (1.10-4.50); Lymphocytes Percent Auto 37.7 % (18.0-42.0); Mean Corpuscular HGB Conc 33.5 g/dL (32.0-36.0); Mean Corpuscular Hemoglobin 31.9 pg (27.0-31.0); Mean Corpuscular Volume 95.1 fL (78.0-102.0); Mean Platelet Volume 9.3 fl (8.7-11.0); Monocytes Absolute Auto 0.61 K/mm3 (0.10-0.90); Monocytes Percent Auto 7.5 % (2.0-11.0); Neutrophils Absolute Auto 4.1 K/mm3 (1.7-7.2); Neutrophils Percent Auto 50.7 % (50.0-70.0); Platelet Count Result 145 K/mm3 (150-420); Red Blood Count 4.27 M/mm3 (4.70-6.10); Red Cell Distribution Width 14.6 % (11.6-14.4); White Blood Count 8.1 K/mm3 (4.8-10.8)
[2024-01-19] MEDS: LABETALOL HCL INJ 100 MG/20 ML VIAL 10 MG IV PUSH (21:34)
[2024-01-19 21:50] LABS: Alanine Aminotransferase 36 U/L (16-63); Albumin Level 3.9 g/dL (3.4-5.0); Alkaline Phosphatase 61 U/L (46-116); Anion Gap 10 mmol/L (8-16); Aspartate Amino Transferase 72 U/L (15-37); Bilirubin,Total 0.5 mg/dL (0.00-1.00); Blood Urea Nitrogen 14 mg/dL (7-18); Calcium 8.7 mg/dL (8.5-10.1); Carbon Dioxide 30 mmol/L (21-32); Chloride 104 mmol/L (98-108); Estimated Glomerular Filt Rate > 60; Glucose 91 mg/dL (70-99); Osmolality Calculated 298 mOsm/kg (285-295); Potassium 3.3 mmol/L (3.5-5.1); Sodium 144 mmol/L (136-145); Total Protein 6.7 g/dL (6.4-8.2)
[2024-01-19 21:51] LABS: Troponin I 17.8 ng/L (0.00-60.4)
[2024-01-19] MEDS: POTASSIUM CHLORIDE 20 MEQ ER TABLET PO (22:21)
[2024-01-19] MEDS: ASPIRIN 81 MG CHEWABLE TABLET 324 MG PO (23:13)
[2024-01-19 23:28] LABS: Ethanol 209 mg/dL (0-6)
[2024-01-20] VITALS (35 sets, daily range): BP systolic 141–191; BP diastolic 92–116; PULSE 74–100; RESP 12–20; TEMP 37–37.2; O2SAT 89–99
[2024-01-20] MEDS: traZODone HCL 50 MG TABLET 100 MG PO (01:20)
--- NOTE | 2024-01-20 05:10 | PC.NURSE ---
Yumiko with [facility] transfer center phoned for update, states they have a telestroke out pending and once completed, they should have another update regarding transfer status.
[2024-01-20] MEDS: lisinopriL 20 MG TABLET 30 MG PO (07:09)
[2024-01-20] MEDS: THIAMINE HCL 200 MG/2 ML VIAL 100 MG IV PUSH (08:03)
[2024-01-20] MEDS: HYDROcodone/acetaminophen (*CRX) 5-325 MG TABLET 1 TAB PO (08:05)
[2024-01-20] MEDS: AZITHROMYCIN 500 MG/NS 250 ML 500 MG/250 ML BAG 250 MG IVPB (08:05)
[2024-01-20] MEDS: PREGABALIN (*CRX) 100 MG CAPSULE 200 MG PO (08:18)
[2024-01-20] MEDS: ACETAMINOPHEN 325 MG TABLET 650 MG PO (08:19)
[2024-01-20] MEDS: PROCHLORPERAZINE EDISYLATE 10 MG/2 ML VIAL IV PUSH (08:19)
[2024-01-20 08:50] LABS: SARS-CoV-2 RNA PCR Negative (Negative)
[2024-01-20 08:54] LABS: Influenza A QL RT-PCR Negative (Negative); Influenza B QL RT-PCR Negative (Negative); RSV RNA, RT-PCR Negative (Negative)
--- NOTE | 2024-01-27 07:36 | PC.NURSE ---
final blood cultures x2 reviewed. no growth after 5 days. no change in plan of care.
== END 2024-01-20 10:07 | disposition home or self-care (01) ==
PROVIDERS: Internal Medicine Critical Care Medicine; Emergency Provider Emergency Medicine; PCP Nurse Practitioner Adult Health
DX: R56.9 Unspecified convulsions (principal); I10 Essential (primary) hypertension; J18.9 Pneumonia, unspecified organism; J01.90 Acute sinusitis, unspecified; R55 Syncope and collapse; Z79.891 Long term (current) use of opiate analgesic; Z79.899 Other long term (current) drug therapy; F17.210 Nicotine dependence, cigarettes, uncomplicated
CPT/HCPCS: 36415; 70450; 70496; 70498; 71045; 80053; 80307; 80366; 83735; 84484; 85025; 87040; 87637; 93005; 96365; 96375; 99284; A9270; G0480; J0456; J0696; J0780; J3411; Q9967

== ENCOUNTER 2024-02-18 00:57 | Day surgery (SDC) | payer OTHER, SELFPAY ==
[2024-02-09 11:22] VITALS: BMI 21.5
--- NOTE | 2024-02-09 11:31 | PC.NURSE ---
Report to the Outpatient Waiting Room, entrance under the green pavilion located off [facility], at time 1200 on date 02/18/24. Planned Procedure Time: 1400. Time changes happen often and if your time is changed the preop area will call you the afternoon before. - You and your visitor will be asked to self-screen and do not enter if you have any COVID symptoms. - A mask is optional within the hospital at this time. Patients may have clear liquids (water, carbonated beverages, clear teas, apple juice) until 3 hours prior to surgery with a maximum of 20 ounces. - No food from midnight until time of surgery Take the following medications with a SIP of water the morning of surgery: HYDROCODONE IF NEEDED, PREGABALIN DO NOT STOP ANY OF YOUR OTHER PRESCRIPTION MEDICATIONS PRIOR TO SURGERY ?EXCEPT THE FOLLOWING Medications to discontinue per physician: N/A Date to take last dose: N/A Please no make-up, nail thai, hairspray, perfume, deodorant, or body powder the day of surgery. No jewelry (including any body piercings) or valuables the day of surgery, leave them at home. Please take a shower or bath the night before, or the morning of, surgery with an antibacterial soap. Wear comfortable, loose fitting clothing. - Jewelry must be removed prior to entering the operating room. Rings and piercings that are not removed may be cut off. - The hospital will not accept responsibility for valuables. - Please leave all valuables, including medications, at home the day of surgery. If you are going home after surgery, a licensed airport shuttle driver must drive you home. - NO public transportation without another adult if you receive anesthesia. - We recommend that an adult stay with you for 24 hours following discharge. - We also recommend that you do not drive, make important decision, drink alcoholic beverages, or take any drugs that were not prescribed by your health care provider for at least 24 hours after your discharge time. Follow any additional instructions given to you from your surgeon. If you or anyone in your household have experienced Covid symptoms in the past week, please notify your surgeon or the nurse liaison at the phone number below for possible testing. Telephone instructions given to OLI COOPER and asked if any additional questions and then verbalized understanding. Patient advised to call surgeon office or pre surgery nurse liaison [phone] if any additional questions.
--- NOTE | 2024-02-17 14:32 | WPDANESEPPF ---
Anes - Initial Pre Proc Eval Procedure: Operation Date: 02/18/24 12:00 Proposed Procedures p Robotic Assisted Bilateral Inguinal Hernia Repair with Mesh - Zoie Horta MD Date/Time: 02/17/24 14:32 Surgeon: Zoie Horta MD Pre Op Diagnosis: Bilateral Inguinal Hernia Patient Data Age: 58 Gender: M Height: 1.78 m Weight: 68.1 kg Allergies Allergy/AdvReac Type Severity Reaction Status Date / Time No Known Allergies Allergy Verified 02/09/24 11:19 Home Medications Medication Instructions Recorded Confirmed Type hydrocodone 5 mg-acetaminophen 325 1 tablet PO TID PRN Pain 04/05/21 02/09/24 History mg tablet lisinopril 30 mg tablet 30 mg PO DAILY 01/19/24 02/09/24 History pregabalin 200 mg capsule 200 mg PO BID 01/19/24 02/09/24 History aspirin 81 mg capsule 81 mg PO DAILY #30 caps 01/20/24 02/09/24 Rx furosemide 20 mg tablet 20 mg PO DAILY 02/09/24 02/09/24 History Patient hx anesthesia problems: none Family hx anesthesia problems: none Results Review: All pre-operative results and documents have been reviewed as part of the pre-operative evaluation. [facility] Past Medical History Medical History (Updated 02/17/24 @ 14:33 by Isaac Faulkner DO) Anxiety Back pain COPD (chronic obstructive pulmonary disease) Dehydration Gout Hypokalemia Neuropathy NELY (obstructive sleep apnea) Peptic ulcer disease Seizure Surgical History Surgical History H/O colectomy H/O esophagectomy with colon segment anastomosis at 4 years-old after swallowing caustic substance. History of gastrostomy tube placement Family History Family History Father Diabetes mellitus Mother Cerebrovascular accident Social History Social History Smoking packs per day: 1 Smoking cigarettes per day: 20.0 Years smoked: 40 Smoking pack-years: 40.00 Smoking status: Current every day smoker Tobacco type: cigarettes Alcohol intake: current Alcohol use details: CUTTING BACK SINCE JANUARY 2024, PRIOR A COUPLE SHOTS/DAY Substance use: never Substance use type: does not use Lack of Transportation: YES Lack of Food: Never True Current Housing: I Have Housing Concerned About Future Housing: No Difficulty Paying Gas/Electric Bills: YES Difficulty Paying for Meds: No Currently Unemployed: No Education: High School Diploma/GED Difficulty w/ Childcare or Family Care: No Living arrangements: with family Gender identity (if verbalized by the patient): Male Sexual Orientation (if Verbalized by the Patient): Straight or Heterosexual Spiritual care concerns: No Anes - Eval Final PreProcedure Day of Procedure 02/17/24 14:32 Patient weight: normal Heart: regular rate and rhythm Lungs: clear to auscultation Airway: Mallampati scale class II and special considerations poor dentition Neurological: alert and oriented Last oral intake: >/= 8 hours ASA classification: III Emergent: no Anesthetic plan: proceed Anesthesia type and monitoring: general ETT and standard monitoring Results Review: All pre-operative results and documents have been reviewed as part of the pre-operative evaluation. Informed Consent: The patient's anesthetic plan and its attendant risks and benefits were discussed with the patient/family/POA. Questions were solicited and answers provided to the satisfaction of the patient/family/POA.
[2024-02-18] VITALS (8 sets, daily range): BP systolic 139–174; BP diastolic 58–117; PULSE 60–94; RESP 10–18; TEMP 36.5–36.9; O2SAT 93–100
[2024-02-18] MEDS: LACTATED RINGERS 1,000 ML 30 ML IV CONT ×2 (10:20→12:35)
[2024-02-18] MEDS: ACETAMINOPHEN 500 MG TABLET 1000 MG PO (10:20)
[2024-02-18] MEDS: KETOROLAC 15 MG/ML VIAL (*BKC) IV PUSH (10:20)
--- NOTE | 2024-02-18 10:32 | WPDHPUPDATE1 ---
History and Physical Update Update Date/Time: 02/18/24 10:32 History and Physical has been reviewed, including an updated exam of the patient. There are NO changes in the patient's condition. Risks, benefits, and alternatives have been discussed and questions answered. Patient agrees to proceed with procedure.
[2024-02-18] MEDS: ceFAZolin 2 GM/D5W 50 ML 2 GM/50 ML BAG IVPB (10:45)
[2024-02-18] MEDS: BUPIVACAINE/EPINEPHRINE 0.5% 30 ML VIAL INFILTRATE (11:04)
--- NOTE | 2024-02-18 12:28 | W.PM.PROC2 ---
Procedure Note - Detailed Date of Procedure 02/18/24 Pre-op Diagnosis Bilateral Inguinal Hernia Post-op Diagnosis Same Procedure Performed robotic assisted bilateral inguinal hernia repair with mesh Surgeon Zoie Horta MD Anesthesia General Indications Pt is a 58 y/o M presenting c few mo h/o bulging, discomfort in R groin. Workup in the office including exam is consistent with bilateral inguinal hernia. Findings Bilateral indirect inguinal Description of Procedure Patient was brought into the operating room and placed in the supine position. After adequate induction of general anesthesia, the patient was prepped and draped in normal sterile fashion. A time-out was then done to verify the patient's identity, as well as the procedure being performed. Of note, the patient had previous extensive laparotomy. I began by making a 8 mm incision in the left mid abdomen, a Veress needle was then placed into the peritoneal cavity. CO2 gas was then insufflated and after adequate pneumoperitoneum was achieved, the Veress needle was removed. I then placed an 8 mm trocar through this incision. I then placed the endoscope through this trocar site and under direct visualization placed 2 further 8 mm ports in the right abdomen and periumbilical region. There was noted to be extensive adhesions in the upper, but nothing in the lower abdomen. The Curoverseinci robot was then docked to the 3 trocar sites. I then scrubbed out and went to the robotic console. Upon examining the pelvis, it was noted that the patient had a moderate sized right inguinal hernia. The left side was examined and a small hernia defect was noted. I began by making a preperitoneal flap approximately 6 cm superior to the right sided defect. This flap was carried medially past the umbilical ligaments and laterally to the transversalis. It then began dissection of my medial compartment taking this down to the pubic tubercle. No direct hernia defect was noted. I then began the lateral dissection taking this down to the transversalis fascia. Once these compartments were achieved, I began dissection around the cord structures. A moderate sized indirect hernia was noted at this point. Using careful dissection, was able to reduce indirect hernia sac off the cord structures. Once this was adequately done, I went ahead and placed a large piece of 3D Max mesh into the abdominal cavity. The mesh was carefully positioned, centering the center of the mesh over the indirect defect. Once this was done, was very satisfied with our repair. Using 3-0 Vicryl sutures, I tacked the mesh medially to Mata's ligament. Two lateral sutures were placed from the mesh to the transversalis fascia. I then began on the left side by making a preperitoneal flap approximately 6 cm superior to the left sided defect. This flap was carried medially past the umbilical ligaments and laterally to the transversalis. It then began dissection of my medial compartment taking this down to the pubic tubercle. I then began the lateral dissection taking this down to the transversalis fascia. Once these compartments were achieved, I began dissection around the cord structures. A small indirect hernia was noted at this point. Using careful dissection, was able to reduce indirect hernia sac off the cord structures. Once this was adequately done, I went ahead and placed a large piece of 3D Max mesh into the abdominal cavity. The mesh was carefully positioned, centering the center of the mesh over the indirect defect. Once this was done, was very satisfied with our repair. Using 3-0 Vicryl sutures, I tacked the mesh medially to Mata's ligament. Two lateral sutures were placed from the mesh to the transversalis fascia.I then closed the peritoneal flap bilaterally with running 2.0 V Lock suture x 2. The abdomen was then desufflated, and all ports were removed. All incisions were then closed with the 4.0 monocryl suture. Dermabond was pl
[2024-02-18] MEDS: fentaNYL CITRATE INJ (*CRX) 100 MCG/2 ML VIAL 25 MCG IV PUSH ×2 (13:05→13:17)
--- NOTE | 2024-02-18 13:07 | SUR.PHASEI ---
1304: Simple mask removed.
--- NOTE | 2024-02-18 13:19 | SUR.PHASEI ---
Dr. Faulnker aware of elevated BP. He said as long as SBP stays below 180 and DBP below 110 to have patient take lisinopril when he gets home.
[2024-02-18] MEDS: oxyCODONE HCL (*CRX) 5 MG TAB IR PO (13:41)
== END 2024-02-18 14:46 | disposition home or self-care (01) ==
PROVIDERS: PCP Family Medicine; Visit Provider Surgery
PROC: 8E0Y4CZ Robotic Assisted Procedure of Lower Extremity, Percutaneous Endoscopic Approach (ICD-10-PCS; CPT 49650; principal; 2024-02-18 12:00)
DX: K40.20 Bilateral inguinal hernia, without obstruction or gangrene, not specified as recurrent (principal); G47.33 Obstructive sleep apnea (adult) (pediatric); Z79.82 Long term (current) use of aspirin; G62.9 Polyneuropathy, unspecified; F17.210 Nicotine dependence, cigarettes, uncomplicated
CPT/HCPCS: 49650; S2900; 36415; 86850; 86900; 86901; A9270; C1781; J0690; J1100; J1885; J2250; J2405; J3010; J7120

== ENCOUNTER 2024-06-02 17:00 | Outpatient (CLI) | payer OTHER, SELFPAY ==
[2024-06-02 17:22] LABS: Basophils Absolute Auto 0.08 K/mm3 (0.00-0.10); Basophils Percent Auto 0.9 % (0.0-1.0); Eosinophils Absolute Auto 0.21 K/mm3 (0.02-0.50); Eosinophils Percent Auto 2.4 % (1.0-6.0); Hematocrit 40.8 % (40.0-54.0); Hemoglobin 13.8 g/dL (14.0-18.0); Immature Granulocyte Absolute 0.03 K/mm3 (0.00-0.00); Immature Granulocyte Percent A 0.3 % (0.0-0.0); Lymphocytes Absolute Auto 3.07 K/mm3 (1.10-4.50); Lymphocytes Percent Auto 35.5 % (18.0-42.0); Mean Corpuscular HGB Conc 33.8 g/dL (32-36); Mean Corpuscular Hemoglobin 32.6 pg (27.0-31.0); Mean Corpuscular Volume 96.5 fL (78.0-102.0); Mean Platelet Volume 9.7 fl (8.7-11.0); Monocytes Absolute Auto 0.83 K/mm3 (0.10-0.90); Monocytes Percent Auto 9.6 % (2.0-11.0); Neutrophils Absolute Auto 4.43 K/mm3 (1.70-7.20); Neutrophils Percent Auto 51.3 % (50.0-70.0); Platelet Count Result 160 K/mm3 (150-420); Red Blood Count 4.23 M/mm3 (4.70-6.10); Red Cell Distribution Width 13.6 % (11.6-14.4); White Blood Count 8.7 K/mm3 (4.8-10.8)
[2024-06-02 17:31] LABS: Creatinine Urine 171.73 mg/dL (40-278); MALB Creatinine Ratio 7.5 mg/g (0-30); Microalbumin Urine Random < 13.0 mg/L
[2024-06-02 17:52] LABS: Alanine Aminotransferase 51 U/L (16-63); Albumin Level 3.9 g/dL (3.4-5.0); Alkaline Phosphatase 103 U/L (46-116); Anion Gap 8 mmol/L (4-12); Aspartate Amino Transferase 27 U/L (15-37); Bilirubin,Total 0.5 mg/dL (0.00-1.00); Blood Urea Nitrogen 17 mg/dL (7-18); Calcium 8.6 mg/dL (8.5-10.1); Carbon Dioxide 30 mmol/L (21-32); Chloride 98 mmol/L (98-108); Cholesterol 145 mg/dL (0-200); Estimated Glomerular Filt Rate > 60; Glucose 130 mg/dL (70-99); HDL Direct 47 mg/dL (40-60); LDL Cholesterol Calculated 66 mg/dL (<130); Osmolality Calculated 285 mOsm/kg (285-295); Potassium 3.7 mmol/L (3.5-5.1); Sodium 136 mmol/L (136-145); Total Protein 6.8 g/dL (6.4-8.2); Triglycerides 159 mg/dL (0-150); Uric Acid 6.8 mg/dL (3.5-7.2)
== END 2024-06-02 17:01 | disposition home or self-care (01) ==
LOC: CHSLAB 17:02
PROVIDERS: PCP Family Medicine; Visit Provider Family Medicine
DX: I10 Essential (primary) hypertension (principal); M10.9 Gout, unspecified; E78.5 Hyperlipidemia, unspecified
CPT/HCPCS: 36415; 80053; 80061; 82043; 84550; 85025

== ENCOUNTER 2025-01-23 13:56 | Outpatient (CLI) | payer OTHER, SELFPAY ==
[2025-01-23 15:13] LABS: Prostate Specific Antigen 11.7 ng/mL (< OR = 4.0)
--- OUTSIDE RECORDS SUMMARY | 2025-01-23 16:11 | XMS_ITS | Clinical Summary ---
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 Gender Identity Not on file Sexual Orientation Not on file Last Filed Vital Signs Vital Sign Reading Time Taken Comments Blood Pressure 176/113 06/18/2016 1:59 PM CDT Pulse 84 06/18/2016 1:59 PM CDT Temperature - - Respiratory Rate - - Oxygen Saturation - - Inhaled Oxygen Concentration - - Weight 63.5 kg (140 lb) 06/18/2016 1:59 PM CDT Height 182.9 cm (6') 06/18/2016 1:59 PM CDT Body Mass Index 18.99 06/18/2016 1:59 PM CDT Plan of Treatment Health Maintenance Due Date Last Done Comments Colorectal Cancer Screening Colonoscopy (10 Years) 1967 Annual Physical 1970 Hepatitis C 1985 DTaP, Tdap and Td Vaccines ( 1 - Tdap) 1986 Hepatitis B Vaccines (1 of 3 - 19+ 3-dose series) 1986 Zoster Vaccines (1 of 2) 2017 COVID-19 Vaccine (2023-2 5 season) 2024 Influenza Adult (#1) 2024 Meningococcal B Vaccine Aged Out No l onger eligible based on patient's age to complete this topic Meningococcal Vaccine Aged Out No marychuy buster eligible based on patient's age to complete this topic Pneumococcal Vaccine: Pediat rics (0 to 5 Years) and At-Risk Patients (6 to 64 Years) Aged Out No longer eligible b ased on patient's age to complete this topic RSV Immunizations Under 20 Months Aged Out No longer eligible based on patient's age to complete this topic
--- OUTSIDE RECORDS SUMMARY | 2025-01-23 16:11 | XMS_ITS | Encounter Summary ---
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
[2025-01-25 02:28] LABS: Hepatitis C Virus Antibody REACTIVE (NON-REACTIVE)
[2025-01-25 14:09] LABS: Hepatitis C Viral RNA PCR 530000 IU/mL (NOT DETECTED)
== END 2025-01-23 13:57 | disposition home or self-care (01) ==
LOC: CHSLAB 13:58
PROVIDERS: PCP Family Medicine; Visit Provider Family Medicine
DX: I10 Essential (primary) hypertension (principal); J44.9 Chronic obstructive pulmonary disease, unspecified; M10.9 Gout, unspecified; Z11.59 Encounter for screening for other viral diseases; Z12.5 Encounter for screening for malignant neoplasm of prostate
CPT/HCPCS: 36415; 84153; 86803; G0103

== ENCOUNTER 2025-01-23 14:24 | Emergency (ER) | payer OTHER, SELFPAY ==
--- NOTE | ~2025-01-23 | XR_ITS ---
XR chest 2V Ordering provider: Woody Valdez MD History: 59 years Male with . cough, sob x 2 weeks . Comparison: January 19, 2024 FINDINGS: MEDIASTINUM: The cardiac silhouette is not enlarged. LUNGS: No effusions or pneumothorax. Loss of silhouette of the left cardiac border suggestive of atel ectasis versus pneumonia in the lingula. Multiple lucencies are on the left hilum most likely unchanged from previous examination. Follow-up a dvised. OTHER: No free air under the diaphragm. IMPRESSION: Atelectasis versus pneumonia in the lingula. Reviewed, dictated and finalized at location A.
[2025-01-23 14:25] VITALS: BP 167/90; PULSE 82; RESP 18; TEMP 36.6; O2SAT 96
--- NOTE | 2025-01-23 14:27 | ED_ITS ---
HPI - URI/Sore Throat General Chief Complaint: Upper Respiratory Infection Stated Complaint: cold symptoms. Time Seen by Provider: 01/23/25 14:27 Source: patient Mode of arrival: ambulatory Limitations: no limitations History of Present Illness HPI Narrative: 59 year old male presents to the Emergency Department complaining of non- productive cough, congestion, night sweats for the past several nights. Has exertional dyspnea. Smoker. Denies chest pain. No known fever, nausea, vomiting, diarrhea. No known exposure. MD elicited complaint: cough and nasal congestion Pertinent past history: COPD Onset (ago): day(s) Consistency: improved (today) Severity: moderate Able to tolerate fluids by mouth: Yes Exacerbating factors: exertion Relieving factors: nothing Associated symptoms: cough and shortness of breath Treatments prior to arrival: none Related Data Home Medications ?Medication ?Instructions ?Recorded ?Confirmed ?Last Taken ?Type hydrocodone 5 mg-acetaminophen 325 1 tablet PO TID PRN Pain 04/05/21 02/18/24 02/18/24 06:30 History mg tablet lisinopril 30 mg tablet 30 mg PO DAILY 01/19/24 02/09/24 Unknown History pregabalin 200 mg capsule 200 mg PO BID 01/19/24 02/09/24 Unknown History furosemide 20 mg tablet 20 mg PO DAILY 02/09/24 02/18/24 02/18/24 History Allergies Allergy/AdvReac Type Severity Reaction Status Date / Time No Known Allergies Allergy Verified 01/23/25 14:28 Review of Systems Review of Systems: All systems reviewed & are unremarkable except as noted in HPI and below Constitutional: Constitutional: Reports as per HPI, Denies chills and Denies fever(s) Eyes: Eyes: Reports as per HPI ENT: Reports system reviewed and no additional complaints, except as documented Cardiovascular: Cardiovascular: Reports as per HPI and Denies chest pain Respiratory: Respiratory: Reports as per HPI, Reports cough and Reports dyspnea Gastrointestinal: Gastrointestinal: Reports as per HPI, Denies abdominal pain, Denies diarrhea, Denies nausea and Denies vomiting Genitourinary: Genitourinary: Reports no additional male genitourinary complaints Musculoskeletal: Musculoskeletal: Reports no additional musculoskeletal complaints Integumentary/Breasts: Skin/Breast: Reports system reviewed and no additional complaints, except as docu Neurologic: Reports system reviewed and no additional complaints, except as documented [facility] Past Medical History Medical History NELY (obstructive sleep apnea) COPD (chronic obstructive pulmonary disease) Neuropathy Seizure Hypokalemia Dehydration Back pain Gout Peptic ulcer disease Anxiety Surgical History Surgical History History of gastrostomy tube placement H/O colectomy H/O esophagectomy with colon segment anastomosis at 4 years-old after swallowing caustic substance. Family History Family History Father Diabetes mellitus Mother Cerebrovascular accident Social History Social History Smoking packs per day: 1 Smoking cigarettes per day: 20.0 Years smoked: 40 Smoking pack-years: 40.00 Smoking status: Current every day smoker Tobacco type: cigarettes Alcohol intake: current Alcohol use details: CUTTING BACK SINCE JANUARY 2024, PRIOR A COUPLE SHOTS/DAY Substance use: never Substance use type: does not use Lack of Transportation: YES Lack of Food: Never True Current Housing: I Have Housing Concerned About Future Housing: No Difficulty Paying Gas/Electric Bills: YES Difficulty Paying for Meds: No Currently Unemployed: No Education: High School Diploma/GED Difficulty w/ Childcare or Family Care: No Living arrangements: with family Gender identity (if verbalized by the patient): Male Sexual Orientation (if Verbalized by the Patient): Straight or Heterosexual Spiritual care concerns: No Exam Const: General: no acute distress Nutritional Appearance: well nourished Orientation/consciousness: patient oriented x3 Limitations: no limitations HENMT: Head: normal to inspection Ears: external ears normal Face/Nose/Sinus: Normal external nose present Face and sinus: normal facial exam Mouth: Yes Normal oral and palatal mucosa present Teeth and gingiva: dentition normal Throat: posterior oropharynx normal Eyes: Conjunctivae: conjunctivae normal Pupils: Equal, round and reactive pupils present EOM: EOMs intact bilaterally Direct Ophthalmoscopy: no photophobia Neck: Neck: normal visual inspection and no meningeal signs Chest: Chest palpation & inspection: normal inspection of the chest Resp: Effort & Inspection: normal respiratory effort Auscultation: wheezes and diminished lung sounds Cardio: Rate: regular rate Rhythm: regular rhythm GI: Inspection: non-distended GI Palp: Yes Soft to palpation and No Tenderness to palpation present (GI) : General: Yes bladder normal to palpation Back/Spine/Pelvis: Back: no CVA tenderness Skin: General skin exam: normal color Rashes: no rashes Wounds: no wounds Neuro: General: patient oriented x3 Other: grossly normal Extrem: General: normal to inspection and no clubbing, cyanosis or edema Course Course Emergency Course: 59 y/o male presents to the ED c/o non-productive cough, congestion, night sweats for past several nights. Exertional dyspnea. Smoker. PE: decreased breath sounds, faint scattered exp wheezes Covid: negative Influenza: A+ RSV: negative CXR: atelectasis vs. pneumonia in lingula Tx: Elmo *reviewed and discussed results with patient. Discussed further management. Patient voices understanding and agreement Rx and Instuctions Vital Signs Vital signs: Vital Signs Temperature 36.6 C 01/23/25 14:25 Pulse Rate 82 01/23/25 14:25 Respiratory Rate 18 01/23/25 14:25 Blood Pressure 167/90 H 01/23/25 14:25 Pulse Oximetry 96 01/23/25 14:25 Oxygen Delivery Room Air 01/23/25 14:25 Temperature 36.6 C 01/23/25 16:08 Pulse Rate 76 01/23/25 16:08 Respiratory Rate 20 01/23/25 16:08 Blood Pressure 145/80 H 01/23/25 16:08 Pulse Oximetry 96 01/23/25 16:08 Oxygen Delivery Room Air 01/23/25 16:08 MDM - URI/Sore Throat Lab Data Labs: Lab Results 01/23/25 Range/Units 14:26 Influenza A (RT-PCR) Positive A (Negative) Influenza B (RT-PCR) Negative (Negative) RSV (RT-PCR) Negative (Negative) SARS-CoV-2 RNA (RT-PCR) Negative (Negative) Discharge Plan Discharge Clinical Impression: Influenza A, Lingular pneumonia Patient Disposition: Home, Self-Care Condition: Stable Instructions: Viral Pneumonia (ED), Influenza (ED) Additional Instructions: Rest Push fluids Tylenol 650 mg every 4 hours and Ibuprofen 600 mg every 6 hours for fever and body aches Take medications as prescribed Stop Smoking Follow up Primary Care Physician Patient Language: Georgian Prescriptions: New oseltamivir [Tamiflu] 75 mg capsule 75 mg PO Q12H 5 Days Qty: 10 0RF benzonatate 200 mg capsule 200 mg PO TID PRN (Reason: cough) Qty: 20 0RF No Action hydrocodone-acetaminophen 5-325 mg tablet 1 tablet PO TID PRN (Reason: Pain) lisinopril 30 mg tablet 30 mg PO DAILY pregabalin 200 mg capsule 200 mg PO BID aspirin 81 mg capsule 81 mg PO DAILY Qty: 30 0RF furosemide 20 mg tablet 20 mg PO DAILY hydrocodone-acetaminophen 5-325 mg tablet 1 tablet PO Q6H PRN (Reason: pain) Qty: 20 0RF docusate sodium [Colace] 100 mg capsule 100 mg PO BID Qty: 20 0RF Follow-up/Referrals: Solitario Camargo MD [Primary Care Provider] - Stand Alone Forms: Work/School Release IP Time of Disposition: 16:04
[2025-01-23 14:38] VITALS: PULSE 80; RESP 20; O2SAT 95
[2025-01-23] MEDS: IPRATROPIUM 0.5 MG/ALBUTEROL SULFATE 2.5 MG AMPUL.NEB 3 ML INHALATION (14:39)
[2025-01-23 14:44] VITALS: PULSE 83; RESP 20; O2SAT 97
[2025-01-23 15:30] LABS: Influenza A QL RT-PCR Positive (Negative); Influenza B QL RT-PCR Negative (Negative); RSV RNA, RT-PCR Negative (Negative); SARS-CoV-2 RNA PCR Negative (Negative)
[2025-01-23 15:56] VITALS: BP 145/80; PULSE 76; RESP 20; TEMP 36.6; O2SAT 96
[2025-01-23 16:08] VITALS: BP 145/80; PULSE 76; RESP 20; TEMP 36.6; O2SAT 96
--- OUTSIDE RECORDS SUMMARY | 2025-01-23 16:43 | XMS_ITS | Clinical Summary ---
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
--- OUTSIDE RECORDS SUMMARY | 2025-01-23 16:43 | XMS_ITS | Encounter Summary ---
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
== END 2025-01-23 16:08 | disposition home or self-care (01) ==
PROVIDERS: Emergency Provider Emergency Medicine; PCP Family Medicine
DX: J10.1 Influenza due to other identified influenza virus with other respiratory manifestations (principal); J18.8 Other pneumonia, unspecified organism; J44.9 Chronic obstructive pulmonary disease, unspecified; F17.210 Nicotine dependence, cigarettes, uncomplicated; Z20.822 Contact with and (suspected) exposure to COVID-19
CPT/HCPCS: 71046; 87637; 94640; 99283

== ENCOUNTER 2025-02-21 11:23 | Outpatient (CLI) | payer OTHER, MEDICAID, SELFPAY ==
[2025-02-21 12:13] LABS: Hematocrit 42.7 % (42.0-52.0); Mean Corpuscular HGB Conc 32.8 g/dl (32-36); Mean Corpuscular Hemoglobin 32.1 pg (26-34); Mean Corpuscular Volume 97.9 fl (80-100); Mean Platelet Volume 9.9 fl (7.4-10.4); Platelet Count Result 186 k/mm3 (150-375); Red Blood Count 4.36 M/mm3 (4.6-6.20); Red Cell Distribution Width 13.8 % (11.5-14.5); White Blood Count 14.1 K/mm3 (4.5-10.0)
[2025-02-21 12:25] LABS: Prothrombin Time 13.8 Seconds (11.1-14.7)
[2025-02-21 12:30] LABS: Alanine Aminotransferase 21 U/L (6-50); Albumin Level 4.9 g/dL (3.5-5.1); Alkaline Phosphatase 83 U/L (38-126); Anion Gap 11 mmol/L (4-12); Aspartate Amino Transferase 28 U/L (17-59); Bilirubin,Total 0.9 mg/dL (0.2-1.3); Blood Urea Nitrogen 12 mg/dL (9-20); Calcium 9.3 mg/dL (8.4-10.2); Carbon Dioxide 27 mmol/L (22-30); Chloride 102 mmol/L (98-107); Estimated Glomerular Filt Rate > 60; Glucose 96 mg/dL (65-110); Potassium 3.6 mmol/L (3.4-5.0); Sodium 140 mmol/L (137-145)
[2025-02-21 12:37] LABS: Immunoglobulin G 1059 mg/dL (700-1600)
[2025-02-21 12:56] LABS: Iron 59 ug/dL (49-181)
--- OUTSIDE RECORDS SUMMARY | 2025-02-21 13:01 | XMS_ITS | Clinical Summary ---
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
--- OUTSIDE RECORDS SUMMARY | 2025-02-21 13:01 | XMS_ITS | Encounter Summary ---
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
[2025-02-21 13:06] LABS: Percent Iron Saturation 19 % (20-50)
[2025-02-21 13:26] LABS: Hepatitis B Surface Antigen Negative (Negative)
[2025-02-21 13:44] LABS: Hepatitis B Surface Anti Res Negative
[2025-02-22 11:44] LABS: Hepatitis B Core Ab Total NON-REACTIVE (NON-REACTIVE)
[2025-02-22 11:53] LABS: Hepatitis A Antibody Total REACTIVE (NON-REACTIVE)
[2025-02-22 16:13] LABS: Alpha-1-Antitrypsin, QN 162 mg/dL (83-199)
[2025-02-25 02:19] LABS: HCV Genotype, LiPA 1a
[2025-02-25 14:04] LABS: Mitochondrial (M2) Ab (IgG) <20.0 U
[2025-02-25 18:04] LABS: ALT 13 U/L (9-46); Alpha-2-Macroglobulin 302 mg/dL (106-279); Apolipoprotein A1 165 mg/dL (94-176); Fibrosis Score 0.38; Fibrosis Stage F1-F2; GGT 42 U/L (3-85); Haptoglobin 216 mg/dL (43-212); Necroinflammat Act Grade A0; Reference ID 5432527; Total Bilirubin 0.6 mg/dL (0.2-1.2)
[2025-02-25 21:03] LABS: LKM 1 Antibody <=20.0 U (<=20.0)
== END 2025-02-21 11:24 | disposition home or self-care (01) ==
PROVIDERS: PCP Family Medicine; Visit Provider Nurse Practitioner
DX: B19.20 Unspecified viral hepatitis C without hepatic coma (principal)
CPT/HCPCS: 36415; 80053; 81596; 82103; 82728; 82784; 83520; 83540; 83550; 85027; 85610; 86038; 86039; 86376; 86704; 86706; 86708; 87340; 87522; 87902